=== PATIENT | female | born 1955 | race Caucasian/White ===

== ENCOUNTER 2016-09-18 08:00 | Outpatient (CLI) | payer MEDICAID | END 2016-09-18 08:01 | disposition home or self-care (01) | DX: R63.4 Abnormal weight loss (principal); E78.5 Hyperlipidemia, unspecified; R30.0 Dysuria; R07.9 Chest pain, unspecified; R73.9 Hyperglycemia, unspecified ==

== ENCOUNTER 2016-10-17 16:15 | Outpatient (CLI) | payer MEDICAID | END 2016-10-17 16:30 | disposition home or self-care (01) | LOC: RT.N 16:15 | PROVIDERS: ATTEND Family Medicine | DX: R06.00 Dyspnea, unspecified (principal) | CPT/HCPCS: 93005 ==

== ENCOUNTER 2016-12-02 15:14 | Emergency (ER) | payer MEDICAID ==
[2016-12-02 15:36] VITALS: BP 121/78
[2016-12-02] MEDS ORDERED: DEXAMETHASONE 10 MG/ML VIAL ONE (15:58)
[2016-12-02] MEDS ORDERED: CHERRY SYRUP 10 ML UDC PO ONE (15:58)
[2016-12-02] MEDS: DEXAMETHASONE 10 MG/ML VIAL PO STA (16:01)
--- NOTE | 2016-12-02 16:02 | ED Physician Documentation ---
PD HPI DYSPNEA - Stated complaint Stated Complaint: MED REFILL - Chief complaint Chief Complaint: Resp - History obtained from History obtained from: Patient - History of Present Illness Timing - onset: How many days ago (few) Timing - onset during: Light activity Timing - duration: Days Timing - details: Gradual onset, Still present, Waxing and waning Inciting event(s): URI (some cough and congestion, though does have seasonal allergies too.) Worsened by: Exertion, Coughing Associated symptoms: Cough, Wheezing. No: Fever, Hemoptysis, Chest pain / discomfort, Bilateral edema Similar symptoms before: Diagnosis (asthma and allergies, sometimes URI/ bronchitis) Recently seen: Not recently seen Review of Systems Constitutional: denies: Fever, Chills, Myalgias Nose: reports: Rhinorrhea / runny nose, Congestion Throat: denies: Sore throat Cardiac: denies: Chest pain / pressure Respiratory: reports: Dyspnea, Cough, Wheezing. denies: Hemoptysis GI: denies: Nausea, Vomiting, Diarrhea Skin: denies: Rash, Lesions Musculoskeletal: denies: Neck pain, Back pain Immunocompromised: denies: Immunocompromised PD PAST MEDICAL HISTORY - Past Medical History Cardiovascular: Hypertension, High cholesterol, Arrhythmia, Other Respiratory: Asthma, COPD, Pneumonia Neuro: None Endocrine/Autoimmune: None GI: Cirrhosis, Diverticulitis, Cholelithiasis, Other : Renal insuffiency, Other HEENT: None Psych: Anxiety, Post traumatic stress disorder Musculoskeletal: None Derm: None - Past Surgical History Past Surgical History: Yes General: Cholecystectomy, Colonoscopy, EGD 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, 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 Cardiovascular: Other - Present Medications Home Medications: Ambulatory Orders Medication Instructions Recorded Confirmed Estradiol [Estrace] 2 mg PO DAILY 08/20/13 12/02/16 Albuterol Sulfate [Proair Hfa] 90 mcg INH Q4HR PRN 01/03/14 12/02/16 Quetiapine Fumarate [Seroquel] 50 mg PO DAILY 01/03/14 12/02/16 Albuterol Sulfate [Proair Hfa 2 puffs IH QID #1 hfa.aer.ad 12/02/16 Inhaler] Allopurinol 100 mg PO DAILY 12/02/16 12/02/16 Beclomethasone 80 Mcg [Qvar 80] 1 puffs PO BID 12/02/16 12/02/16 Dexamethasone [Decadron] 4 mg PO DAILY #7 tablet 12/02/16 Gabapentin [Neurontin] 300 mg PO BID 12/02/16 12/02/16 [place]-3/Dha/Epa/Fish Oil [Fish Oil 2 cap PO BID 12/02/16 12/02/16 1,360 mg Softgel] - Allergies Allergies/Adverse Reactions: Allergies Allergy/AdvReac Type Severity Reaction Status Date / Time Sulfa (Sulfonamide Allergy Intermediate Hives Verified 12/02/16 15:38 Antibiotics) codeine AdvReac Itching Verified 12/02/16 15:38 morphine AdvReac Anxiety Verified 12/02/16 15:38 - Living Situation Living Arrangement: reports: At home - Social History Does the pt smoke?: Yes Smoking Status: Current every day smoker Does the pt drink ETOH?: No Does the pt have substance abuse?: No - Immunizations Immunizations are current?: Yes - POLST Patient has POLST: No PD ED PE NORMAL - Vitals Vital signs reviewed: Yes - General General: Alert and oriented X 3, Well developed/nourished - HEENT HEENT: Pharynx benign - Neck Neck: Supple, no meningeal sign, No adenopathy - Cardiac Cardiac: RRR, No murmur - Respiratory Respiratory: No respiratory distress, Other (some mild wheezing. CLear smell of ciagarette smoke on clothing. ) - Derm Derm: Normal color, Warm and dry - Extremities Extremities: No tenderness to palpate, No edema Results - Vitals Vitals: Vital Signs - 24 hr 12/02/16 12/02/16 15:17 15:32 Temperature 36.2 C L 36.1 C L Heart Rate 85 79 Respiratory 18 20 Rate Blood Pressure 129/77 121/78 O2 Saturation 97 96 Oxygen O2 Source [With Activity] Nasal cannula O2 Source [Without Activity] Nasal cannula O2 Source Room air PD MEDICAL DECISION MAKING - ED course Complexity details: considered differential (seems likely environmental or perhaps viral. No fevers, purulent sputum. Will give Rx for Albuterol MDI and short course steroids. ), d/w patient Departure - Departure Disposition: 01 Home, Self Care Clinical Impression: Asthma Qualifiers: Asthma severity: mild persistent Asthma complication type: with acute exacerbation Qualified Code(s): J45.31 - Mild persistent asthma with (acute) exacerbation Dyspnea Qualifiers: Dyspnea type: shortness of breath Qualified Code(s): R06.02 - Shortness of breath Condition: Stable Record reviewed to determine appropriate education?: Yes Instructions: Asthma Dc, ED URI Viral W Wheezing Follow-Up: Leonid Irizarry MD [Primary Care Provider] - Prescriptions: Dexamethasone [Decadron] 4 mg PO DAILY #7 tablet Albuterol Sulfate [Proair Hfa Inhaler] 2 puffs IH QID #1 hfa.aer.ad Comments: Continue usual medications. Albuterol inhaler 2 puffs 4 times daily and extra times as needed for cough/wheezing. Decadron steroid daily for a week. Recheck if not improved over the next few days. Discharge Date/Time: 12/02/16 16:10
== END 2016-12-02 16:10 | disposition home or self-care (01) ==
LOC: ED 15:14
DX: J45.31 Mild persistent asthma with (acute) exacerbation (principal); J44.9 Chronic obstructive pulmonary disease, unspecified; I10 Essential (primary) hypertension; E78.00 Pure hypercholesterolemia, unspecified; I49.9 Cardiac arrhythmia, unspecified; K74.60 Unspecified cirrhosis of liver; N28.9 Disorder of kidney and ureter, unspecified; F17.200 Nicotine dependence, unspecified, uncomplicated
CPT/HCPCS: 99282; 99283

== ENCOUNTER 2017-02-27 15:17 | Outpatient (CLI) | payer MEDICAID | END 2017-02-27 15:18 | disposition critical access hospital (66) | LOC: EMS 15:17 | PROVIDERS: ATTEND Surgery | DX: R06.00 Dyspnea, unspecified (principal); R05 Cough | CPT/HCPCS: A0425; A0427 ==

== ENCOUNTER 2017-02-27 15:40 | Emergency (ER) | payer MEDICAID ==
[2017-02-27] MEDS ORDERED: ALBUTEROL NEB 2.5 MG/3 ML INH STA (15:45)
[2017-02-27] MEDS ORDERED: SODIUM CHLORIDE 0.9% 1,000 ML IV ONE (15:45)
--- NOTE | 2017-02-27 15:48 | ED Physician Documentation ---
PD HPI DYSPNEA - Stated complaint Stated Complaint: DIFFICULTY BREATHING - History obtained from History obtained from: Patient, EMS - History of Present Illness Timing - onset: Other (61-year-old woman with history of COPD and still smokes with 2 weeks of increasing shortness of breath and a dry cough. No fevers or chills, no chest pain, or pedal edema. On route she received Solu-Medrol, 125 mg IV and a DuoNeb with some improvement.) Review of Systems Constitutional: denies: Fever, Chills Nose: denies: Rhinorrhea / runny nose, Congestion Cardiac: denies: Chest pain / pressure, Palpitations, Pedal edema, Calf pain Respiratory: reports: Dyspnea, Cough, Wheezing. 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 Cardiovascular: Other - Present Medications Home Medications: Ambulatory Orders Medication Instructions Recorded Confirmed Estradiol [Estrace] 2 mg PO DAILY 08/20/13 02/27/17 Albuterol Sulfate [Proair Hfa] 90 mcg INH Q4HR PRN 01/03/14 12/02/16 Quetiapine Fumarate [Seroquel] 50 mg PO DAILY 01/03/14 02/27/17 Albuterol Sulfate [Proair Hfa 2 puffs IH QID #1 hfa.aer.ad 12/02/16 02/27/17 Inhaler] Allopurinol 100 mg PO DAILY 12/02/16 02/27/17 Beclomethasone 80 Mcg [Qvar 80] 1 puffs PO BID 12/02/16 02/27/17 Gabapentin [Neurontin] 300 mg PO BID 12/02/16 02/27/17 [place]-3/Dha/Epa/Fish Oil [Fish Oil 2 cap PO BID 12/02/16 12/02/16 1,360 mg Softgel] Albuterol Sulfate [Proventil Hfa 1 - 2 puffs IH Q4H PRN #1 02/27/17 Inhaler] hfa.aer.ad Doxycycline Hyclate 100 mg PO BID #14 tablet 02/27/17 predniSONE [Deltasone] 20 mg PO [id number] #21 tab 02/27/17 - Allergies Allergies/Adverse Reactions: Allergies Allergy/AdvReac Type Severity Reaction Status Date / Time Sulfa (Sulfonamide Allergy Intermediate Hives Verified 02/27/17 15:48 Antibiotics) codeine AdvReac Itching Verified 02/27/17 15:48 morphine AdvReac Anxiety Verified 02/27/17 15:48 - Social History Does the pt smoke?: Yes Smoking Status: Current every day smoker Does the pt drink ETOH?: No Does the pt have substance abuse?: No - Family History Family history: reports: Non contributory - Immunizations Immunizations are current?: Yes - POLST Patient has POLST: No PD ED PE NORMAL - Vitals Vital signs reviewed: Yes - General General: Alert and oriented X 3, Other (Appears winded but speaking in full sentences) - HEENT HEENT: PERRL, Pharynx benign - Neck Neck: Supple, no meningeal sign, No bony TTP - Cardiac Cardiac: RRR, No murmur - Respiratory Respiratory: Other (Inspiratory and expiratory wheezing throughout with slight rhonchi but no focal findings.) - Derm Derm: Normal color, Warm and dry - Extremities Extremities: No edema, No calf tenderness / cord - Neuro Neuro: Alert and oriented X 3, Normal speech - Psych Psych: Normal mood, Normal affect Results - Vitals Vitals: Vital Signs - 24 hr 02/27/17 02/27/17 02/27/17 15:45 16:00 16:01 Temperature 36.1 C L Heart Rate 78 78 93 Respiratory 20 14 20 Rate Blood Pressure 112/80 119/62 O2 Saturation 93 95 02/27/17 16:45 Temperature Heart Rate 90 Respiratory 17 Rate Blood Pressure 95/55 L O2 Saturation 95 Oxygen O2 Source [] Nasal cannula O2 Source [] Nasal cannula O2 Source Room air - Labs Labs: Laboratory Tests 02/27/17 02/27/17 16:40 16:40 WBC 13.1 H RBC 5.20 Hgb 16.4 H Hct 49.0 H MCV 94.1 MCH 31.6 H MCHC 33.6 RDW 14.8 Plt Count 214 MPV 8.3 Neut # 9.7 H Lymph # 2.6 [place] # 0.4 Eos # 0.3 Baso # 0.1 Absolute Nucleated RBC 0.00 Nucleated RBC % 0.0 Sodium 137 Potassium 4.1 Chloride 100 L Carbon Dioxide 23 Anion Gap 14.0 H BUN 15 Creatinine 1.2 H Estimated GFR (MDRD) 46 L Glucose 152 H Calcium 9.7 Total Bilirubin 0.7 AST 21 ALT 18 Alkaline Phosphatase 76 Total Protein 8.3 H Albumin 5.0 Globulin 3.3 Albumin/Globulin Ratio 1.5 Lipase 30 - Rads (name of study) 1v chest Radiology: EMP read contemporaneously (NAD) PD MEDICAL DECISION MAKING - ED course ED course: 61-year-old woman with COPD presents with apparent exacerbation of same, chest x -ray is clear. Feeling better after a second neb here and also received steroids in route. Vital signs stayed unremarkable without significant tachycardia or hypoxemia. She was also administered doxycycline here. She was counseled to quit smoking and understands the need to and plans to. Departure - Departure Disposition: 01 Home, Self Care Clinical Impression: Moderate COPD (chronic obstructive pulmonary disease) Condition: Good Record reviewed to determine appropriate education?: Yes Instructions: ED COPD Flare Prescriptions: Albuterol Sulfate [Proventil Hfa Inhaler] 1 - 2 puffs IH Q4H PRN #1 hfa.aer.ad PRN Reason: Cough Doxycycline Hyclate 100 mg PO BID #14 tablet predniSONE [Deltasone] 20 mg PO [id number] #21 tab Comments: Follow-up with your doctor tomorrow as scheduled. Return if worse.
[2017-02-27] MEDS ORDERED: ALBUTEROL NEB 2.5 MG/3 ML INH ONE (16:04)
--- NOTE | 2017-02-27 16:14 | XRAY Preliminary Report ---
Exam: XR CHEST 1 VIEW IMPRESSION: Normal single view chest. [facility] SITE ID: [id number]
--- NOTE | 2017-02-27 16:17 | XRAY Report ---
EXAM: CHEST RADIOGRAPHY EXAM DATE: 02/27/2017 04:00 PM. CLINICAL HISTORY: Dyspnea. History of COPD. COMPARISON: 01/10/2014. TECHNIQUE: 1 view. FINDINGS: Lungs/Pleura: No focal opacities evident. No pleural effusion. No pneumothorax. Normal volumes. Mediastinum: Within exam limitations, the cardiomediastinal contour is normal. Other: No bony abnormality is identified. IMPRESSION: Normal single view chest. [facility] Referring Provider Line: [phone] SITE ID: [id number]
[2017-02-27] MEDS ORDERED: SODIUM CHLORIDE FLUSH 0.9% 10 ML SYRINGE IVP ONE (16:20)
[2017-02-27] MEDS ORDERED: DOXYCYCLINE 100 MG TABLET PO STA (16:35)
[2017-02-27 16:47] LABS: BASOPHILS # (AUTO) 0.1 10^3/uL (0.0-0.1); BASOPHILS % (AUTO) 0.7 %; EOSINOPHILS # (AUTO) 0.3 10^3/uL (0.0-0.7); EOSINOPHILS % (AUTO) 2.3 %; HGB - HEMOGLOBIN 16.4 g/dL (12.0-16.0); LYMPHOCYTES # (AUTO) 2.6 10^3/uL (1.5-3.5); MEAN CORPUSCULAR HEMOGLOBIN 31.6 pg (27.0-31.0); MEAN CORPUSCULAR HGB CONC 33.6 g/dL (32.0-36.0); MEAN CORPUSCULAR VOLUME 94.1 fL (81.0-99.0); MEAN PLATELET VOLUME 8.3 fL (7.9-10.8); MONOCYTES # (AUTO) 0.4 10^3/uL (0.0-1.0); NEUTROPHILS # (AUTO) 9.7 10^3/uL (1.5-6.6); RED CELL DISTRIBUTION WIDTH 14.8 % (12.0-15.0); UNCORRECTED WHITE BLOOD COUNT 13.1 x10^3/uL; WHITE BLOOD COUNT 13.1 x10^3/uL (4.8-10.8)
[2017-02-27] MEDS ORDERED: DOXYCYCLINE 100 MG TABLET PO ONE (16:47)
[2017-02-27 17:00] LABS: ALBUMIN/GLOBULIN RATIO 1.5 (1.0-2.2); BILIRUBIN,TOTAL 0.7 mg/dL (0.2-1.0); CALCIUM 9.7 mg/dL (8.5-10.3); CREATININE 1.2 mg/dL (0.4-1.0); POTASSIUM 4.1 mmol/L (3.5-5.0); TOTAL PROTEIN 8.3 g/dL (6.7-8.2)
[2017-02-27 17:24] VITALS: BP 133/77
== END 2017-02-27 17:21 | disposition home or self-care (01) ==
LOC: EDUNIT# → ED 15:40
DX: J44.9 Chronic obstructive pulmonary disease, unspecified (principal); I10 Essential (primary) hypertension; E78.00 Pure hypercholesterolemia, unspecified; F17.200 Nicotine dependence, unspecified, uncomplicated
CPT/HCPCS: 36415; 71010; 80053; 83690; 85025; 94640; 96360; 99284; A9270; J7613

== ENCOUNTER 2017-05-30 22:39 | Emergency (ER) | payer MEDICAID ==
--- NOTE | 2017-05-30 23:16 | XRAY Report ---
EXAM: RIGHT FOOT RADIOGRAPHY EXAM DATE: 05/30/2017 11:02 PM. CLINICAL HISTORY: Toe and heel pain after minor trauma. COMPARISON: None. TECHNIQUE: 3 views. FINDINGS: Bones: No acute fracture seen. Joints: No dislocation. Joint spaces are relatively well-preserved. Soft Tissues: Mild soft tissue swelling. IMPRESSION: 1. No acute fracture or dislocation seen. [facility] Referring Provider Line: [phone] SITE ID: [id number]
[2017-05-30] MEDS ORDERED: IBUPROFEN 600 MG TABLET PO STA (23:19)
--- NOTE | 2017-05-30 23:38 | ED Physician Documentation ---
PD HPI LOWER EXT INJURY - Stated complaint Stated Complaint: TOE/HEEL PX - Chief complaint Chief Complaint: Trauma Ext - History obtained from History obtained from: Patient - History of Present Illness PD HPI LOW EXT INJURY LOCATION: Right, Ankle, Foot, Toe Type of injury: Blunt / blow Where injury occurred: Home Timing - onset: How many days ago (4) Timing - details: Abrupt onset, Still present Improved by: Rest, Immobilization Worsened by: Palpating Associated symptoms: Numbness, Tingling. No: Weakness, Swelling, Discolored Similar symptoms before: Has not had sx before Recently seen: Not recently seen - Additional information Additional information: Patient is a 61 year old female who is presenting to the emergency department for right sided rib pain. patient states that a few days ago she stubbed her toe. She has had pain in her 4th and 5th digits and then she developed medial foot pain. Patient states that it gets worse when she is up on her feet and gets better when her feet are up or she is wearing supportive shoes. Review of Systems Constitutional: denies: Fever, Chills, Myalgias Eyes: reports: Reviewed and negative Ears: reports: Reviewed and negative Nose: reports: Reviewed and negative Throat: reports: Reviewed and negative Cardiac: denies: Pedal edema, Calf pain Respiratory: reports: Wheezing GI: denies: Nausea, Vomiting : reports: Reviewed and negative Skin: denies: Rash, Lesions, Abrasion (s) Musculoskeletal: reports: Extremity pain, Extremity swelling Neurologic: reports: Numbness. 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 Cardiovascular: Other - Present Medications Home Medications: Ambulatory Orders Medication Instructions Recorded Confirmed Estradiol [Estrace] 2 mg PO DAILY 08/20/13 05/30/17 Albuterol Sulfate [Proair Hfa] 90 mcg INH Q4HR PRN 01/03/14 05/30/17 Albuterol Sulfate [Proair Hfa 2 puffs IH QID #1 hfa.aer.ad 12/02/16 05/30/17 Inhaler] Allopurinol 100 mg PO DAILY 12/02/16 05/30/17 Beclomethasone 80 Mcg [Qvar 80] 1 puffs PO BID 12/02/16 05/30/17 Gabapentin [Neurontin] 300 mg PO BID 12/02/16 05/30/17 [place]-3/Dha/Epa/Fish Oil [Fish Oil 2 cap PO BID 12/02/16 05/30/17 1,360 mg Softgel] Albuterol Sulfate [Proventil Hfa 1 - 2 puffs IH Q4H PRN #1 02/27/17 05/30/17 Inhaler] hfa.aer.ad Doxycycline Hyclate 100 mg PO BID #14 tablet 02/27/17 05/30/17 predniSONE [Deltasone] 20 mg PO [id number] #21 tab 02/27/17 05/30/17 - Allergies Allergies/Adverse Reactions: Allergies Allergy/AdvReac Type Severity Reaction Status Date / Time Sulfa (Sulfonamide Allergy Intermediate Hives Verified 05/30/17 22:46 Antibiotics) codeine AdvReac Itching Verified 05/30/17 22:46 morphine AdvReac Anxiety Verified 05/30/17 22:46 - Social History Does the pt smoke?: Yes Smoking Status: Current every day smoker Does the pt drink ETOH?: No Does the pt have substance abuse?: No - Immunizations Immunizations are current?: Yes - POLST Patient has POLST: No PD ED PE NORMAL - Vitals Vital signs reviewed: Yes - General General: Alert and oriented X 3, No acute distress - HEENT HEENT: Atraumatic, PERRL - Neck Neck: No JVD - Cardiac Cardiac: RRR - Respiratory Respiratory: No respiratory distress - Abdomen Abdomen: Non distended - Derm Derm: Normal color, Warm and dry, No rash - Neuro Neuro: Alert and oriented X 3, No motor deficit, Normal speech PD ED PE EXPANDED - Extremities Extremities: Right ankle (minimal tenderness to palpation, no warmth or erythema ), Right toe(s) (tenderness and mild swelling of 4th and 5th digits of right foot) Results - Vitals Vitals: Vital Signs - 24 hr 05/30/17 22:44 Temperature 36.3 C L Heart Rate 92 Respiratory 18 Rate Blood Pressure 114/100 H O2 Saturation 100 Oxygen O2 Source [With Activity] Nasal cannula O2 Source [Without Activity] Nasal cannula O2 Source Room air - Rads (name of study) right foot x-ray Radiology: Final report received (no acute fracture or dislocation, mild swelling) PD MEDICAL DECISION MAKING - ED course Complexity details: reviewed old records, reviewed results, re-evaluated patient , considered differential, d/w patient, d/w family ED course: Patient was seen and examined at bedside. Patient was sent for imaging. when patient returned the results were reviewed. there was no acute fracture or dislocation. patient had no signs of gout or infection. Patient required no further work up and was stable for discharge with outpatient follow up. Departure - Departure Disposition: 01 Home, Self Care Clinical Impression: Foot pain, right Condition: Good Instructions: ED Sprain Foot, ED RICE Follow-Up: Leonid Irizarry MD [Primary Care Provider] - Comments: Your diagnostics today were within normal limits. there is no acute fracture or dislocation. there is no sign of gout or infection. You should take motrin or tylenol as needed for pain as well as ice. You can wear the jesús bandage for extra support. You should try to cut back/quit smoking and you may be developing peripheral vascular disease. You should follow up with your doctor for further evaluation and care. You may return to the emergency department at any time for new, worsening or uncontrollable symptoms.
[2017-05-31 00:03] VITALS: BP 118/90
== END 2017-05-30 23:50 | disposition home or self-care (01) ==
LOC: ED 22:39
DX: M79.671 Pain in right foot (principal); W22.8XXA Striking against or struck by other objects, initial encounter; I10 Essential (primary) hypertension; E78.00 Pure hypercholesterolemia, unspecified; I49.9 Cardiac arrhythmia, unspecified; J44.9 Chronic obstructive pulmonary disease, unspecified; K74.60 Unspecified cirrhosis of liver; F17.200 Nicotine dependence, unspecified, uncomplicated
CPT/HCPCS: 73630; 99283; A9270

== ENCOUNTER 2017-07-30 13:39 | Outpatient (CLI) | payer MEDICAID ==
[2017-07-30 19:43] LABS: ALBUMIN 4.9 g/dL (3.2-5.5); ALBUMIN/GLOBULIN RATIO 1.4 (1.0-2.2); ALKALINE PHOSPHATASE 97 IU/L (42-121); ALT ALANINE AMINOTRANSFERASE 19 IU/L (10-60); AST ASPARTATE AMINOTRANSFERASE 24 IU/L (10-42); BILIRUBIN,TOTAL 0.6 mg/dL (0.2-1.0); BUN - BLOOD UREA NITROGEN 17 mg/dL (6-20); CALCIUM 9.6 mg/dL (8.5-10.3); CARBON DIOXIDE - CO2 20 mmol/L (21-32); CHLORIDE 102 mmol/L (101-111); CHOL/HDL RATIO 7.6 (<4.4); CHOLESTEROL 343 mg/dL; CREATININE 1.1 mg/dL (0.4-1.0); GFR - MDRD 51 (>89); GLUCOSE 144 mg/dL (70-100); HDL CHOLESTEROL 45 mg/dL; LDL CHOLESTEROL,CALCULATED 236 mg/dL; LDL/HDL RATIO 5.2 (<4.4); SODIUM 134 mmol/L (135-145); TOTAL PROTEIN 8.5 g/dL (6.7-8.2); VLDL CHOLESTEROL 62 mg/dL
== END 2017-07-30 13:40 | disposition home or self-care (01) ==
LOC: LAB.N 13:39
PROVIDERS: ATTEND Family Medicine
DX: E78.1 Pure hyperglyceridemia (principal)
CPT/HCPCS: 36415; 80053; 80061; 83721

== ENCOUNTER 2017-08-29 11:14 | Outpatient (CLI) | payer MEDICAID ==
--- NOTE | 2017-08-29 14:23 | XRAY Report ---
THREE VIEW RIGHT FOOT: 08/29/2017 CLINICAL INDICATION: Toe pain. COMPARISON: 05/30/2017. FINDINGS: AP, lateral, oblique views of the right foot demonstrate no evidence of acute fracture or dislocation. Specifically, no right fifth toe fracture is appreciated. No radiopaque foreign body is seen in the soft tissues. IMPRESSION: NO EVIDENCE OF FRACTURE. NO SIGNIFICANT INTERVAL CHANGE. TD: 08/29/2017 14:22
== END 2017-08-29 11:15 | disposition home or self-care (01) ==
LOC: DI.N 11:14
PROVIDERS: ATTEND Family Medicine
DX: M79.674 Pain in right toe(s) (principal)

== ENCOUNTER 2017-10-21 08:00 | Outpatient (CLI) | payer MEDICAID ==
[2017-10-21 19:42] LABS: BASOPHILS # (AUTO) 0.1 10^3/uL (0.0-0.1); BASOPHILS % (AUTO) 0.8 %; EOSINOPHILS # (AUTO) 0.2 10^3/uL (0.0-0.7); EOSINOPHILS % (AUTO) 2.7 %; HGB - HEMOGLOBIN 14.7 g/dL (12.0-16.0); LYMPHOCYTES # (AUTO) 2.3 10^3/uL (1.5-3.5); MEAN CORPUSCULAR HEMOGLOBIN 32.8 pg (27.0-31.0); MEAN CORPUSCULAR HGB CONC 33.6 g/dL (32.0-36.0); MEAN CORPUSCULAR VOLUME 97.7 fL (81.0-99.0); MEAN PLATELET VOLUME 8.8 fL (7.9-10.8); MEAN RETIC VALUE 114.6; MONOCYTES # (AUTO) 0.6 10^3/uL (0.0-1.0); NEUTROPHILS # (AUTO) 4.8 10^3/uL (1.5-6.6); NEUTROPHILS % (AUTO) 60.5 %; PLT - PLATELET COUNT 182 10^3/uL (130-450); RED BLOOD COUNT 4.48 10^6/uL (4.20-5.40); RED CELL DISTRIBUTION WIDTH 14.1 % (12.0-15.0); WHITE BLOOD COUNT 7.9 x10^3/uL (4.8-10.8)
[2017-10-21 19:59] LABS: HB2 TOTAL 16.2 g/dL; HEMOGLOBIN A1C 0.58 g/dL; HEMOGLOBIN A1C % 5.4 % (4.6-6.2)
[2017-10-21 20:08] LABS: CALCIUM 9.4 mg/dL (8.5-10.3); CREATININE 0.9 mg/dL (0.4-1.0)
[2017-10-21 20:17] LABS: FERRITIN 48.2 ng/mL (11.0-306.8)
[2017-10-21 20:20] LABS: FOLATE 23.91 ng/mL (5.90 - >24.8)
== END 2017-10-21 08:01 | disposition home or self-care (01) ==
LOC: LAB.N 08:00
PROVIDERS: ATTEND Family Medicine
DX: R73.01 Impaired fasting glucose (principal); D64.9 Anemia, unspecified
CPT/HCPCS: 36415; 80048; 82607; 82728; 82746; 83036; 83540; 84466; 85025; 85044

== ENCOUNTER 2017-12-27 16:54 | Outpatient (CLI) | payer MEDICAID | END 2017-12-27 16:55 | disposition critical access hospital (66) | LOC: EMS 16:54 | PROVIDERS: ATTEND Surgery | DX: R06.02 Shortness of breath (principal) | CPT/HCPCS: A0425; A0427; A0999 ==

== ENCOUNTER 2017-12-27 17:22 | Emergency (ER) | payer MEDICAID ==
--- NOTE | 2017-12-27 18:26 | XRAY Report ---
Procedure Date: 12/27/2017 Accession Number: [id number] / [id number] Procedure: XR - Chest 2 View X-Ray CPT Code: 17109 FULL RESULT: EXAM: CHEST RADIOGRAPHY EXAM DATE: 12/27/2017 06:00 PM. CLINICAL HISTORY: SOA/wheezing. COMPARISON: CHEST 2 VIEW PA/LAT 01/03/2014. TECHNIQUE: 2 views. FINDINGS: Lungs/Pleura: No focal opacities evident. No pleural effusion. No pneumothorax. Normal volumes. Mediastinum: Heart and mediastinal contours are unremarkable. Other: None. IMPRESSION: Negative chest. [facility]
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
[2017-12-27] MEDS ORDERED: BENZONATATE 100 MG CAPSULE PO STA (18:58)
[2017-12-27] MEDS ORDERED: methylPREDNISolone SUCCINATE 125 MG/2 ML VIAL IVP STA (18:58)
[2017-12-27 19:18] VITALS: BP 129/74
== END 2017-12-27 19:18 | disposition home or self-care (01) ==
LOC: EDBD → EDUNIT# → ED 17:22
DX: J45.21 Mild intermittent asthma with (acute) exacerbation (principal); R05 Cough; F17.200 Nicotine dependence, unspecified, uncomplicated; I10 Essential (primary) hypertension
CPT/HCPCS: 71046; 93005; 96374; 99283; A9270

== ENCOUNTER 2018-01-03 16:22 | Outpatient (CLI) | payer MEDICAID | END 2018-01-03 16:23 | disposition home or self-care (01) | LOC: RT.N 16:22 | PROVIDERS: ATTEND Family Medicine | DX: R06.00 Dyspnea, unspecified (principal); J44.1 Chronic obstructive pulmonary disease with (acute) exacerbation | CPT/HCPCS: 93005 ==

== ENCOUNTER 2018-09-19 08:00 | Outpatient (CLI) | payer MEDICAID ==
[2018-09-19 18:49] LABS: BASOPHILS # (AUTO) 0.1 10^3/uL (0.0-0.1); BASOPHILS % (AUTO) 0.6 %; EOSINOPHILS # (AUTO) 0.2 10^3/uL (0.0-0.7); EOSINOPHILS % (AUTO) 2.4 %; HGB - HEMOGLOBIN 14.5 g/dL (12.0-16.0); LYMPHOCYTES # (AUTO) 2.9 10^3/uL (1.5-3.5); LYMPHOCYTES % (AUTO) 33.2 %; MEAN CORPUSCULAR HEMOGLOBIN 32.7 pg (27.0-31.0); MEAN CORPUSCULAR HGB CONC 34.1 g/dL (32.0-36.0); MEAN CORPUSCULAR VOLUME 95.8 fL (81.0-99.0); MEAN PLATELET VOLUME 9.2 fL (7.9-10.8); MONOCYTES # (AUTO) 0.6 10^3/uL (0.0-1.0); MONOCYTES % (AUTO) 6.3 %; NEUTROPHILS # (AUTO) 5.1 10^3/uL (1.5-6.6); NEUTROPHILS % (AUTO) 57.5 %; PLT - PLATELET COUNT 213 10^3/uL (130-450); RED BLOOD COUNT 4.42 10^6/uL (4.20-5.40); RED CELL DISTRIBUTION WIDTH 14.2 % (12.0-15.0); WHITE BLOOD COUNT 8.9 x10^3/uL (4.8-10.8)
[2018-09-19 18:53] LABS: HB2 TOTAL 15.3 g/dL; HEMOGLOBIN A1C 0.55 g/dL; HEMOGLOBIN A1C % 5.4 % (4.6-6.2)
[2018-09-19 18:54] LABS: CALCIUM 9.3 mg/dL (8.5-10.3); CREATININE 0.8 mg/dL (0.4-1.0)
== END 2018-09-19 23:59 | disposition home or self-care (01) ==
LOC: LAB.N 08:00
PROVIDERS: ATTEND Physician Assistant Medical
DX: K52.9 Noninfective gastroenteritis and colitis, unspecified (principal); R73.01 Impaired fasting glucose; D64.9 Anemia, unspecified; F17.200 Nicotine dependence, unspecified, uncomplicated; J44.9 Chronic obstructive pulmonary disease, unspecified; R10.13 Epigastric pain
CPT/HCPCS: 36415; 80048; 82150; 82274; 83036; 83690; 85025; 87045; 87046; 87338

== ENCOUNTER 2018-09-19 08:00 | Outpatient (CLI) | payer MEDICAID ==
[2018-09-19 19:46] LABS: H. PYLORIS ANTIGEN STL NEGATIVE (Negative)
== END 2018-09-19 23:59 | disposition home or self-care (01) ==
LOC: LAB.R 08:00
PROVIDERS: ATTEND Physician Assistant Medical
DX: K52.9 Noninfective gastroenteritis and colitis, unspecified (principal); R73.01 Impaired fasting glucose; D64.9 Anemia, unspecified; F17.200 Nicotine dependence, unspecified, uncomplicated; J44.9 Chronic obstructive pulmonary disease, unspecified; R10.13 Epigastric pain
CPT/HCPCS: 87045; 87046; 87338

== ENCOUNTER 2018-12-26 13:52 | Outpatient (CLI) | payer MEDICAID ==
[2018-12-26 14:20] LABS: CALCIUM 9.3 mg/dL (8.5-10.3); CREATININE 0.8 mg/dL (0.4-1.0)
[2018-12-26] MEDS ORDERED: IOVERSOL 320 100 ML VIAL IVP ONE (14:22)
[2018-12-26] MEDS ORDERED: IOVERSOL 320 50 ML VIAL ONE (14:22)
--- NOTE | 2018-12-29 00:43 | CT Report ---
Reason: ELEVATED PANCREATIC ENZYME, EPIGASTRIC PAIN, DIARR Procedure Date: 12/26/2018 Accession Number: [id number] / [id number] Procedure: CT - Abdomen/Pelvis W CPT Code: FULL RESULT: EXAM: CT ABDOMEN AND PELVIS EXAM DATE: 12/26/2018 03:20 PM. CLINICAL HISTORY: ELEVATED PANCREATIC ENZYME, EPIGASTRIC PAIN, DIARR. COMPARISONS: ABDOMEN/PELVIS W/ 05/12/2014 4:02 PM. TECHNIQUE: Routine helical CT imaging was performed through the abdomen and pelvis. IV contrast: OPTI 320 90ML. Enteric contrast: No. Reconstructions: Coronal and sagittal. In accordance with CT protocol optimization, one or more of the following dose reduction techniques were utilized for this exam: automated exposure control, adjustment of mA and/or KV based on patient size, or use of iterative reconstructive technique. FINDINGS: ABDOMEN: Lung Bases: Incompletely included lower lungs are grossly clear. Heart size is within normal limits. No basilar effusions. Liver: Unremarkable aside from focal fat adjacent to the fissure for the falciform ligament. Spleen: Unremarkable. Pancreas: Unremarkable. Gallbladder/Bile Ducts: Status post cholecystectomy. Biliary tree is normal caliber. Adrenal Glands: Unremarkable. Kidneys: No mass, calculi, or hydronephrosis. Peritoneum/Mesentery/Bowel: No free fluid, free air, or collection. No intestinal obstruction or inflammation. Colonic diverticulosis. The appendix is within normal limits. Lymph nodes: No mesenteric, periportal, or retroperitoneal lymphadenopathy. Vasculature: Abdominal aorta is nonaneurysmal. Portal vein is patent. Hepatic veins are patent. PELVIS: The bladder is unremarkable for the degree of distention. Uterus is absent. No pelvic lymphadenopathy. Bones: No suspicious osseous lesions. Redemonstration of old bony defect in the right iliac wing. IMPRESSION: No acute abnormalities. RADIA
== END 2018-12-26 13:53 | disposition home or self-care (01) ==
LOC: LAB 13:52
PROVIDERS: ATTEND Physician Assistant Medical
DX: K52.9 Noninfective gastroenteritis and colitis, unspecified (principal); R74.8 Abnormal levels of other serum enzymes; R10.13 Epigastric pain
CPT/HCPCS: 36415; 74177; 80048; Q9967

== ENCOUNTER 2019-07-03 16:53 | Outpatient (CLI) | payer MEDICAID | END 2019-07-03 23:59 | disposition home or self-care (01) | LOC: LAB.R 16:53 | PROVIDERS: ATTEND Family Medicine | DX: R30.0 Dysuria (principal) | CPT/HCPCS: 87086 ==

== ENCOUNTER 2020-07-21 16:49 | Emergency (ER) | payer MEDICAID ==
--- NOTE | 2020-07-21 17:19 | ED Physician Documentation ---
History of Present Illness - Stated complaint Stated Complaint: CHILLS, UNABLE TO EAT - Chief complaint Chief Complaint: General - History obtained from History obtained from: Patient - Additonal information Additional information: 64-year-old woman with history of gout, left bundle branch block, hypertension who presents with 2 months of progressive issues with occasional confusion and word finding difficulty. Twice while she is driving she kind of forgets where she is going but then figures it out. For the last month or so she has had a pain in the left mastoid area. It is pretty constant. Does not seem to change with motion. Its not terrible but definitely disconcerting for her. Is not associated with other headaches or hearing loss. No URI symptoms. During this timeframe she is lost quite a bit of weight, 20 to 30 pounds. She just does not feel hungry, has no appetite. Review of Systems Ten Systems: 10 systems reviewed and negative Constitutional: reports: Chills, Fatigue, Weight Loss. denies: Fever Nose: denies: Rhinorrhea / runny nose, Congestion Throat: denies: Sore throat Cardiac: denies: Chest pain / pressure, Palpitations Respiratory: denies: Dyspnea, Cough PD PAST MEDICAL HISTORY - Past Medical History Cardiovascular: Hypertension, High cholesterol, Arrhythmia, Other Respiratory: Asthma, COPD, Pneumonia Endocrine/Autoimmune: None GI: Cirrhosis, Diverticulitis, Cholelithiasis, Other : Renal insuffiency, Other HEENT: None Psych: Anxiety, Post traumatic stress disorder Musculoskeletal: None Derm: None - Past Surgical History Past Surgical History: Yes General: Cholecystectomy, Colonoscopy, EGD Ortho: Other /[employer]: Hysterectomy, Oophrectomy Cardiovascular: Other - Present Medications Home Medications: Ambulatory Orders Medication Instructions Recorded Confirmed Estradiol [Estrace] 2 mg PO DAILY 08/20/13 05/30/17 Albuterol Sulfate [Proair Hfa] 90 mcg INH Q4HR PRN 01/03/14 05/30/17 Albuterol Sulfate [Proair Hfa 2 puffs IH QID #1 hfa.aer.ad 12/02/16 05/30/17 Inhaler] Beclomethasone 80 Mcg [Qvar 80] 1 puffs PO BID 12/02/16 05/30/17 Gabapentin [Neurontin] 300 mg PO BID 12/02/16 05/30/17 [place]-3/Dha/Epa/Fish Oil [Fish Oil 2 cap PO BID 12/02/16 05/30/17 1,360 mg Softgel] allopurinoL [Allopurinol] 100 mg PO DAILY 12/02/16 05/30/17 Albuterol Sulfate [Proventil Hfa 1 - 2 puffs IH Q4H PRN #1 02/27/17 05/30/17 Inhaler] hfa.aer.ad Doxycycline Hyclate 100 mg PO BID #14 tablet 02/27/17 05/30/17 predniSONE [Deltasone] 20 mg PO [id number] #21 tab 02/27/17 05/30/17 Albuterol 2.5 mg INH Q4H PRN #30 neb 12/27/17 Albuterol Sulf [Ventolin Hfa 1 - 2 puffs INH Q4HR PRN #1 inhaler 12/27/17 Inhaler] Benzonatate [Tessalon] 100 mg PO TID PRN #25 capsule 12/27/17 predniSONE [Deltasone] 40 mg PO DAILY 5 Days #10 tablet 12/27/17 - Allergies Allergies/Adverse Reactions: Allergies Allergy/AdvReac Type Severity Reaction Status Date / Time Sulfa (Sulfonamide Allergy Intermediate Hives Verified 07/21/20 17:03 Antibiotics) codeine AdvReac Itching Verified 07/21/20 17:03 morphine AdvReac Anxiety Verified 07/21/20 17:03 - Social History Does the pt smoke?: Yes Smoking Status: Current every day smoker Does the pt drink ETOH?: No Does the pt have substance abuse?: No - Immunizations Immunizations are current?: Yes - POLST Patient has POLST: No PD ED PE NORMAL - Vitals Vital signs reviewed: Yes - General General: Alert and oriented X 3, No acute distress - HEENT HEENT: PERRL, EOMI, Other (No mastoid tenderness or odd appearance to the TMs) - Neck Neck: Supple, no meningeal sign, No bony TTP - Cardiac Cardiac: RRR, No murmur - Respiratory Respiratory: No respiratory distress, Clear bilaterally - Abdomen Abdomen: Soft, Non tender - Back Back: No CVA TTP, No spinal TTP - Derm Derm: Normal color, Warm and dry - Extremities Extremities: No tenderness to palpate, Normal ROM s pain, No edema, No calf tenderness / cord - Neuro Neuro: Alert and oriented X 3, No motor deficit, No sensory deficit, Normal speech, Other (Intention tremor on [id number] testing but no ataxia it is symmetric.) - Psych Psych: Normal mood, Normal affect Results - Vitals Vitals: Vital Signs - 24 hr 07/21/20 16:54 Temperature 36.3 C L Heart Rate 98 Respiratory 18 Rate Blood Pressure 112/74 O2 Saturation 99 Oxygen O2 Source [With Activity] Nasal cannula O2 Source [Without Activity] Nasal cannula O2 Source Room air - Labs Labs: Laboratory Tests 07/21/20 07/21/20 07/21/20 17:45 17:55 17:55 WBC 10.3 RBC 4.45 Hgb 14.3 Hct 42.7 MCV 96.0 MCH 32.1 H MCHC 33.5 RDW 14.2 Plt Count 200 MPV 10.0 Neut # (Auto) 6.7 H Lymph # (Auto) 2.7 Barry # (Auto) 0.6 Eos # (Auto) 0.2 Baso # (Auto) 0.1 Absolute Nucleated RBC 0.00 Nucleated RBC % 0.0 Sodium 135 Potassium 3.3 L Chloride 99 L Carbon Dioxide 24 Anion Gap 12.0 BUN 14 Creatinine 1.3 H Estimated GFR (MDRD) 42 L Glucose 103 H Calcium 9.4 Total Bilirubin 0.7 AST 17 ALT 14 Alkaline Phosphatase 77 Total Protein 7.7 Albumin 4.7 Globulin 3.0 Albumin/Globulin Ratio 1.6 TSH Urine Opiates Screen NEGATIVE Ur Oxycodone Screen NEGATIVE Urine Methadone Screen NEGATIVE Ur Propoxyphene Screen NEGATIVE Ur Barbiturates Screen NEGATIVE Ur Tricyclics Screen NEGATIVE Ur Phencyclidine Scrn NEGATIVE Ur Amphetamine Screen NEGATIVE U Methamphetamines Scrn NEGATIVE U Benzodiazepines Scrn POSITIVE H Urine Cocaine Screen NEGATIVE U Cannabinoids Screen POSITIVE H 07/21/20 17:55 WBC RBC Hgb Hct MCV MCH MCHC RDW Plt Count MPV Neut # (Auto) Lymph # (Auto) Barry # (Auto) Eos # (Auto) Baso # (Auto) Absolute Nucleated RBC Nucleated RBC % Sodium Potassium Chloride Carbon Dioxide Anion Gap BUN Creatinine Estimated GFR (MDRD) Glucose Calcium Total Bilirubin AST ALT Alkaline Phosphatase Total Protein Albumin Globulin Albumin/Globulin Ratio TSH 1.45 Urine Opiates Screen Ur Oxycodone Screen Urine Methadone Screen Ur Propoxyphene Screen Ur Barbiturates Screen Ur Tricyclics Screen Ur Phencyclidine Scrn Ur Amphetamine Screen U Methamphetamines Scrn U Benzodiazepines Scrn Urine Cocaine Screen U Cannabinoids Screen - Rads (name of study) head ct Radiology: EMP read contemporaneously 2v chest Radiology: EMP read contemporaneously PD MEDICAL DECISION MAKING - ED course ED course: 64-year-old woman presents with subacute left occipital headache, weight loss and poor appetite. She is a long-term smoker but thankfully no evidence of lung cancer on chest x-ray. Head CT was normal. Labs relatively unremarkable. Mildly high creatinine but she has had worse in the past. She uses concentrated THC products relatively frequently and discussed with her that this may be part of the weight loss and appetite issues and she will trial a cessation of these. Departure - Departure Disposition: 01 Home, Self Care Clinical Impression: Appetite lost, Weight loss Condition: Stable Record reviewed to determine appropriate education?: Yes Instructions: ED Cephalgia Unspecified Comments: As discussed, I would trial cessation of THC containing products, they may not be helping her appetite. Your CT of the head and chest x-ray are normal with the exception of COPD type chronic changes. Labs are otherwise unremarkable. Follow-up with your primary care physician. Discussed neurologic referral as you are planning to do. Return if worsening or if new symptoms develop.
--- NOTE | 2020-07-21 17:38 | XRAY Report ---
PROCEDURE: Chest 2 View X-Ray INDICATIONS: weight loss, smoker TECHNIQUE: 2 view(s) of the chest. COMPARISON: None. FINDINGS: Surgical changes and devices: None. Lungs and pleura: No pleural effusions or pneumothorax. Lungs are clear. Mediastinum: Mediastinal contours are normal. Heart size is normal. Bones and chest wall: No suspicious bony abnormalities. Soft tissues appear unremarkable. IMPRESSION: Large lung volumes, no mass or pneumonia found. Reviewed by: Richard Saini MD on 07/21/2020 4:[address] [facility] Approved by: Richard Saini MD on 07/21/2020 4:[address] [facility] Station ID: [id number]
--- NOTE | 2020-07-21 17:50 | CT Report ---
PROCEDURE: HEAD WO INDICATIONS: posterior head pain TECHNIQUE: Noncontrast 4.5 mm thick angled axial sections acquired from the foramen magnum to the vertex. For r adiation dose reduction, the following was used: automated exposure control, adjustment of mA and/or kV according to patient size. COMPARISON: None. FINDINGS: Image quality: Excellent. CSF spaces: Basal cisterns are patent. No extra-axial fluid collections. Ventricles are normal in size and shape. Brain: No midline shift. No intracranial masses or hemorrhage. Salgado-white matter interface is norm al. Skull and face: Calvarium and visualized facial bones are intact, without suspicious lesions. Sinuses: Visualized sinuses and mastoids are clear. IMPRESSION: Unremarkable head CT. No evidence acute stroke, hemorrhage, or mass. Reviewed by: Zach Salgado MD on 07/21/2020 4:49 PM [facility] Approved by: Zach Salgado MD on 07/21/2020 4:49 PM [facility] Station ID: [id number]
[2020-07-21 17:51] LABS: MUDS CUTOFF CONCENTRATIONS CUTOFF CONC BELOW:
[2020-07-21 17:59] LABS: BASOPHILS # (AUTO) 0.1 10^3/uL (0.0-0.1); BASOPHILS % (AUTO) 0.5 %; EOSINOPHILS # (AUTO) 0.2 10^3/uL (0.0-0.7); EOSINOPHILS % (AUTO) 1.8 %; HCT - HEMATOCRIT 42.7 % (37.0-47.0); HGB - HEMOGLOBIN 14.3 g/dL (12.0-16.0); LYMPHOCYTES # (AUTO) 2.7 10^3/uL (1.5-3.5); LYMPHOCYTES % (AUTO) 26.6 %; MEAN CORPUSCULAR HEMOGLOBIN 32.1 pg (27.0-31.0); MEAN CORPUSCULAR HGB CONC 33.5 g/dL (32.0-36.0); MONOCYTES # (AUTO) 0.6 10^3/uL (0.0-1.0); MONOCYTES % (AUTO) 6.2 %; NEUTROPHILS # (AUTO) 6.7 10^3/uL (1.5-6.6); NEUTROPHILS % (AUTO) 64.6 %; PLT - PLATELET COUNT 200 10^3/uL (130-450); RED BLOOD COUNT 4.45 10^6/uL (4.20-5.40); RED CELL DISTRIBUTION WIDTH 14.2 % (12.0-15.0); WHITE BLOOD COUNT 10.3 x10^3/uL (4.8-10.8)
[2020-07-21 18:04] LABS: AMPHETAMINE SCREEN,URINE NEGATIVE (NEGATIVE); BARBITURATE SCREEN,UR NEGATIVE (NEGATIVE); BENZODIAZEPINES SCREEN, URINE POSITIVE (NEGATIVE); COCAINE SCREEN URINE NEGATIVE (NEGATIVE); METHADONE SCREEN, URINE NEGATIVE (NEGATIVE); METHAMPHETAMINES SCREEN, URINE NEGATIVE (NEGATIVE); OPIATE SCREEN, URINE NEGATIVE (NEGATIVE); OXYCODONE SCREEN, URINE NEGATIVE (NEGATIVE); PROPOXYPHENE SCREEN, URINE NEGATIVE (NEGATIVE); THC CANNABINOID SCREEN, URINE POSITIVE (NEGATIVE); TRICYCLIC ANTIDEPRESSANT,URINE NEGATIVE (NEGATIVE)
[2020-07-21 18:12] LABS: ALBUMIN 4.7 g/dL (3.2-5.5); ALBUMIN/GLOBULIN RATIO 1.6 (1.0-2.2); BILIRUBIN,TOTAL 0.7 mg/dL (0.2-1.0); CALCIUM 9.4 mg/dL (8.5-10.3); CREATININE 1.3 mg/dL (0.4-1.0); POTASSIUM 3.3 mmol/L (3.5-5.0); TOTAL PROTEIN 7.7 g/dL (6.7-8.2)
[2020-07-21 18:46] VITALS: BP 109/68
== END 2020-07-21 18:46 | disposition home or self-care (01) ==
LOC: ED 16:49
DX: R63.0 Anorexia (principal); R63.4 Abnormal weight loss; R51.9 Headache, unspecified; I10 Essential (primary) hypertension; N28.9 Disorder of kidney and ureter, unspecified; F17.200 Nicotine dependence, unspecified, uncomplicated
CPT/HCPCS: 36415; 80053; 80306; 84443; 85025; 99284

== ENCOUNTER 2020-09-09 08:00 | Outpatient (CLI) | payer MEDICAID ==
[2020-09-09 20:48] LABS: BASOPHILS # (AUTO) 0.1 10^3/uL (0.0-0.1); BASOPHILS % (AUTO) 0.7 %; EOSINOPHILS # (AUTO) 0.3 10^3/uL (0.0-0.7); EOSINOPHILS % (AUTO) 3.6 %; HCT - HEMATOCRIT 46.2 % (37.0-47.0); HGB - HEMOGLOBIN 14.8 g/dL (12.0-16.0); LYMPHOCYTES # (AUTO) 3.4 10^3/uL (1.5-3.5); LYMPHOCYTES % (AUTO) 37.7 %; MEAN CORPUSCULAR HEMOGLOBIN 31.6 pg (27.0-31.0); MEAN CORPUSCULAR VOLUME 98.5 fL (81.0-99.0); MEAN PLATELET VOLUME 10.4 fL (7.9-10.8); MONOCYTES # (AUTO) 0.6 10^3/uL (0.0-1.0); NEUTROPHILS # (AUTO) 4.7 10^3/uL (1.5-6.6); NEUTROPHILS % (AUTO) 51.7 %; PLT - PLATELET COUNT 282 10^3/uL (130-450); RED BLOOD COUNT 4.69 10^6/uL (4.20-5.40); RED CELL DISTRIBUTION WIDTH 14.6 % (12.0-15.0); WHITE BLOOD COUNT 9.1 x10^3/uL (4.8-10.8)
[2020-09-09 20:59] LABS: ALBUMIN 5.2 g/dL (3.2-5.5); ALBUMIN/GLOBULIN RATIO 1.5 (1.0-2.2); BILIRUBIN,TOTAL 0.6 mg/dL (0.2-1.0); CALCIUM 10.3 mg/dL (8.5-10.3); CREATININE 0.9 mg/dL (0.4-1.0); POTASSIUM 4.8 mmol/L (3.5-5.0); TOTAL PROTEIN 8.6 g/dL (6.7-8.2)
== END 2020-09-09 23:59 | disposition home or self-care (01) ==
LOC: LAB.N 08:00
PROVIDERS: ATTEND Physician Assistant Medical
DX: R10.9 Unspecified abdominal pain (principal)
CPT/HCPCS: 36415; 80053; 83690; 85025; 87086

== ENCOUNTER 2021-01-01 17:48 | Emergency (ER) | payer OTHER, MEDICAID ==
[2021-01-01 18:02] VITALS: BP 112/56
--- NOTE | 2021-01-01 18:24 | ED Physician Documentation ---
PD HPI LOWER EXT INJURY - Stated complaint Stated Complaint: LEFT LEG LAC - Chief complaint Chief Complaint: Laceration - History obtained from History obtained from: Patient - History of Present Illness PD HPI LOW EXT INJURY LOCATION: Left (65-year-old woman who is up-to-date on tetanus lacerated her left leg on an oxygen tank that fell against her benavides yesterday at work a little over 24 hours ago. With persistent bleeding and wound care concerns.) Review of Systems Constitutional: reports: Reviewed and negative Eyes: reports: Reviewed and negative Ears: reports: Reviewed and negative Nose: reports: Reviewed and negative Throat: reports: Reviewed and negative Cardiac: reports: Reviewed and negative PD PAST MEDICAL HISTORY - Past Medical History Cardiovascular: Hypertension, High cholesterol, Arrhythmia, Other Respiratory: Asthma, COPD, Pneumonia Endocrine/Autoimmune: None GI: Cirrhosis, Diverticulitis, Cholelithiasis, Other : Renal insuffiency, Other HEENT: None Psych: Anxiety, Post traumatic stress disorder Musculoskeletal: None Derm: None - Past Surgical History Past Surgical History: Yes General: Cholecystectomy, Colonoscopy, EGD 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, 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 Cardiovascular: Other - Present Medications Home Medications: Ambulatory Orders Medication Instructions Recorded Confirmed Estradiol [Estrace] 2 mg PO DAILY 08/20/13 05/30/17 Albuterol Sulfate [Proair Hfa] 90 mcg INH Q4HR PRN 01/03/14 05/30/17 Albuterol Sulfate [Proair Hfa 2 puffs IH QID #1 hfa.aer.ad 12/02/16 05/30/17 Inhaler] Beclomethasone 80 Mcg [Qvar 80] 1 puffs PO BID 12/02/16 05/30/17 Gabapentin [Neurontin] 300 mg PO BID 12/02/16 05/30/17 [place]-3/Dha/Epa/Fish Oil [Fish Oil 2 cap PO BID 12/02/16 05/30/17 1,360 mg Softgel] allopurinoL [Allopurinol] 100 mg PO DAILY 12/02/16 05/30/17 Albuterol Sulfate [Proventil Hfa 1 - 2 puffs IH Q4H PRN #1 02/27/17 05/30/17 Inhaler] hfa.aer.ad Doxycycline Hyclate 100 mg PO BID #14 tablet 02/27/17 05/30/17 predniSONE [Deltasone] 20 mg PO [id number] #21 tab 02/27/17 05/30/17 Albuterol 2.5 mg INH Q4H PRN #30 neb 12/27/17 Albuterol Sulf [Ventolin Hfa 1 - 2 puffs INH Q4HR PRN #1 inhaler 12/27/17 Inhaler] Benzonatate [Tessalon] 100 mg PO TID PRN #25 capsule 12/27/17 predniSONE [Deltasone] 40 mg PO DAILY 5 Days #10 tablet 12/27/17 - Allergies Allergies/Adverse Reactions: Allergies Allergy/AdvReac Type Severity Reaction Status Date / Time Sulfa (Sulfonamide Allergy Intermediate Hives Verified 01/01/21 18:02 Antibiotics) varenicline [From Chantix] Allergy Unknown Verified 01/01/21 18:02 codeine AdvReac Itching Verified 01/01/21 18:02 morphine AdvReac Anxiety Verified 01/01/21 18:02 - Social History Does the pt smoke?: Yes Smoking Status: Current every day smoker Does the pt drink ETOH?: No Does the pt have substance abuse?: No - Immunizations Immunizations are current?: Yes - POLST Patient has POLST: No PD ED PE NORMAL - Vitals Vital signs reviewed: Yes - General General: Alert and oriented X 3, No acute distress - Extremities Extremities: Other (There is a skin tear on the left lower extremity that is modestly deep without signs of infection. It measures 3 cm) - Neuro Neuro: Alert and oriented X 3, Normal speech - Psych Psych: Normal mood, Normal affect Results - Vitals Vitals: Vital Signs - 24 hr 01/01/21 17:55 Temperature 36.3 C L Heart Rate 58 L Respiratory 16 Rate Blood Pressure 112/56 L O2 Saturation 97 Oxygen O2 Source [With Activity] Nasal cannula O2 Source [Without Activity] Nasal cannula O2 Source Room air Procedures - Laceration (location) Left leg Length in cm: 3 Wound type: Superficial, Into subcut fat Neurovascular status: Sensory intact, Motor intact, Vascular intact Wound preparation: Irrigated copiously NS Skin layer closure: Steri strips Other: Tetanus UTD Departure - Departure Disposition: 01 Home, Self Care Clinical Impression: Laceration Condition: Good Record reviewed to determine appropriate education?: Yes Instructions: ED Laceration Ext Sutr Stap Tape
== END 2021-01-01 18:35 | disposition home or self-care (01) ==
LOC: ED 17:48
DX: S81.812A Laceration without foreign body, left lower leg, initial encounter (principal); W26.8XXA Contact with other sharp object(s), not elsewhere classified, initial encounter; Y99.0 Civilian activity done for income or pay; I10 Essential (primary) hypertension; J44.9 Chronic obstructive pulmonary disease, unspecified; F17.200 Nicotine dependence, unspecified, uncomplicated; F43.10 Post-traumatic stress disorder, unspecified; F41.9 Anxiety disorder, unspecified; Z79.51 Long term (current) use of inhaled steroids; Z79.52 Long term (current) use of systemic steroids; Z79.899 Other long term (current) drug therapy
CPT/HCPCS: 1040M; 12002; 99281; 99282

== ENCOUNTER 2021-01-14 14:44 | Emergency (ER) | payer OTHER, MEDICAID ==
[2021-01-14] MEDS ORDERED: ceFAZolin 1 GM VIAL IM STA (15:16)
--- NOTE | 2021-01-14 15:18 | ED Physician Documentation ---
PD HPI WOUND RECHECK - Stated complaint Stated Complaint: LT LEG WOUND - Chief complaint Chief Complaint: Wound - Histroy obtained from History obtained from: Patient - Additional information Additional information: 65-year-old woman with history of tobacco use had a work-related laceration of the left leg about 12 days ago. She was seen here, she was already over 24 hours after the injury was sustained so it was irrigated and Steri-Stripped. She states that after the Steri-Strips were placed there was a lot of redness and swelling which improved but has not resolved after the Steri-Strips are removed. No fevers. Review of Systems Constitutional: reports: Reviewed and negative Eyes: reports: Reviewed and negative Ears: reports: Reviewed and negative Nose: reports: Reviewed and negative Throat: reports: Reviewed and negative Cardiac: reports: Reviewed and negative PD PAST MEDICAL HISTORY - Past Medical History Cardiovascular: Hypertension, High cholesterol, Arrhythmia, Other Respiratory: Asthma, COPD, Pneumonia Endocrine/Autoimmune: None GI: Cirrhosis, Diverticulitis, Cholelithiasis, Other : Renal insuffiency, Other HEENT: None Psych: Anxiety, Post traumatic stress disorder Musculoskeletal: None Derm: None - Past Surgical History Past Surgical History: Yes General: Cholecystectomy, Colonoscopy, EGD 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, 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 Cardiovascular: Other - Present Medications Home Medications: Ambulatory Orders Medication Instructions Recorded Confirmed Estradiol [Estrace] 2 mg PO DAILY 08/20/13 01/14/21 Gabapentin [Neurontin] 300 mg PO BID 12/02/16 01/14/21 allopurinoL [Allopurinol] 100 mg PO DAILY 12/02/16 01/14/21 Albuterol Sulfate [Proventil Hfa 1 - 2 puffs IH Q4H PRN #1 02/27/17 01/14/21 Inhaler] hfa.aer.ad Bupropion HCl [Wellbutrin Xl] 300 mg PO DAILY 01/14/21 01/14/21 Oxybutynin Chloride [Ditropan Xl] 15 mg PO DAILY 01/14/21 01/14/21 Venlafaxine ER [Effexor ER] 150 mg PO DAILY 01/14/21 01/14/21 cephALEXin [Keflex] 500 mg PO Q6H #28 cap 01/14/21 - Allergies Allergies/Adverse Reactions: Allergies Allergy/AdvReac Type Severity Reaction Status Date / Time Sulfa (Sulfonamide Allergy Intermediate Hives Verified 01/14/21 14:51 Antibiotics) varenicline [From Chantix] Allergy Unknown Verified 01/14/21 14:51 codeine AdvReac Itching Verified 01/14/21 14:51 morphine AdvReac Anxiety Verified 01/14/21 14:51 - Social History Does the pt smoke?: Yes Smoking Status: Current every day smoker Does the pt drink ETOH?: No Does the pt have substance abuse?: No - Immunizations Immunizations are current?: Yes - POLST Patient has POLST: No PD ED PE NORMAL - Vitals Vital signs reviewed: Yes - General General: Alert and oriented X 3, No acute distress - Derm Derm: Other (There is a granulating scabbed over wound on the left lower extremity with minimal surrounding cellulitis and just a dot of purulent material at the base which was sent for culture.) - Neuro Neuro: Alert and oriented X 3, Normal speech Results - Vitals Vitals: Vital Signs - 24 hr 01/14/21 01/14/21 14:51 15:57 Temperature 36.8 C 36.9 C Heart Rate 105 H 91 Respiratory 16 18 Rate Blood Pressure 121/68 111/66 O2 Saturation 96 96 Oxygen O2 Source [With Activity] Nasal cannula O2 Source [Without Activity] Nasal cannula O2 Source Room air PD MEDICAL DECISION MAKING - ED course ED course: 65-year-old woman with mild wound infection. It was cleansed and a culture was taken. She is started on antibiotics. Discussed follow-up and potential wound care referral if not improving quickly. Departure - Departure Disposition: 01 Home, Self Care Clinical Impression: Wound infection Condition: Good Record reviewed to determine appropriate education?: Yes Instructions: ED Infec Skin Cellulitis Prescriptions: cephALEXin [Keflex] 500 mg PO Q6H #28 cap Comments: Prescription sent electronically to [facility] in [place]. If not improving over the next few days, go to the walk-in clinic on [facility] for reevaluation and consideration for wound care referral. Return if worsening or if you run a fever. We are performing a wound culture, the results should be done in 48-72 hours. If antibiotic change is necessary we will call you. Return if worse in the meantime, especially if you develop increased pain, fevers, cannot keep down the medication. Otherwise follow-up with your physician in approximately 2-3 days. Discharge Date/Time: 01/14/21 15:59
[2021-01-14 15:58] VITALS: BP 111/66
--- NOTE | 2021-01-16 13:25 | ED Physician Documentation ---
ED Addendum - Addendum Addendum: 01/16/21 13:24 Wound culture was reviewed, positive for Staph aureus, not tested against cephalexin, penicillin resistant. We will change to clindamycin 300 mg p.o. every 6 hours x7 days dispense #28. Departure - Departure Disposition: 01 Home, Self Care Clinical Impression: Wound infection Condition: Good Instructions: ED Infec Skin Cellulitis Prescriptions: clindamycin HCL [Cleocin HCl] 300 mg PO Q6H #28 cap cephALEXin [Keflex] 500 mg PO Q6H #28 cap Comments: Prescription sent electronically to [facility] in [place]. If not improving over the next few days, go to the walk-in clinic on [facility] for reevaluation and consideration for wound care referral. Return if worsening or if you run a fever. We are performing a wound culture, the results should be done in 48-72 hours. If antibiotic change is necessary we will call you. Return if worse in the meantime, especially if you develop increased pain, fevers, cannot keep down the medication. Otherwise follow-up with your physician in approximately 2-3 days. Discharge Date/Time: 01/14/21 15:59
== END 2021-01-14 15:59 | disposition home or self-care (01) ==
LOC: ED 14:44
DX: S81.812A Laceration without foreign body, left lower leg, initial encounter (principal); L08.9 Local infection of the skin and subcutaneous tissue, unspecified; B95.61 Methicillin susceptible Staphylococcus aureus infection as the cause of diseases classified elsewhere; X58.XXXA Exposure to other specified factors, initial encounter; Y99.0 Civilian activity done for income or pay; I10 Essential (primary) hypertension; F17.200 Nicotine dependence, unspecified, uncomplicated
CPT/HCPCS: 87070; 87181; 87205; 96372; 99283

== ENCOUNTER 2021-03-17 13:59 | Outpatient (CLI) | payer MEDICAID | END 2021-03-17 14:00 | disposition critical access hospital (66) | LOC: EMS 13:59 | DX: R00.2 Palpitations (principal) | CPT/HCPCS: A0425; A0427; A0999 ==

== ENCOUNTER 2021-03-17 14:17 | Emergency (ER) | payer MEDICAID ==
[2021-03-17] MEDS ORDERED: KETOROLAC 30 MG/ML VIAL IVP STA (14:29)
[2021-03-17] MEDS ORDERED: DEXAMETHASONE 10 MG/ML VIAL IVP STA (14:29)
--- NOTE | 2021-03-17 14:31 | ED Physician Documentation ---
PD HPI CHEST PAIN - Chief complaint Chief Complaint: Cardiac - History obtained from History obtained from: Patient - History of Present Illness Timing - onset: How many days ago (5) Timing - onset during: Rest Timing - duration: Days (5) Timing - details: Abrupt onset, Still present Quality: Sharp, Pain Location: Substernal, Left chest Improved by: Rest Worsened by: Exertion, Inspiration, Movement, Palpation, Position Associated symptoms: Shortness of air, Nausea, Vomiting, Palpitations, Cough. No: Diaphoresis Similar symptoms before: Has not had sx before Recently seen: Clinic - Additional information Additional information: 65-year-old female with a history of COPD is gone to her doctor today with a complaint of some chest pain. She has pain in the left side of her chest and electrocardiogram was done showing a left bundle branch block and she was shipped to the hospital. The patient herself states that she has had this pain for about 5 days it hurts to take a deep breath hurts to push on the chest wall. She did have a fall out of her bed onto a coffee table about 5 days ago. She denies any shortness of breath with this she denies any fever with this she does have some chronic abdominal pain and this is currently active. She is having some burning-like sensation in the abdomen and she is constipated. She is fully vaccinated against Covid and she denies any current fever. pt has hx of LBBB. Review of Systems Constitutional: denies: Fever Eyes: denies: Decreased vision Ears: denies: Ear pain Nose: denies: Rhinorrhea / runny nose, Congestion Throat: denies: Sore throat Cardiac: reports: Chest pain / pressure, Palpitations. denies: Pedal edema, Calf pain Respiratory: reports: Cough. denies: Dyspnea, Wheezing GI: reports: Abdominal Pain, Nausea, Vomiting, Constipation : denies: Dysuria, Frequency Skin: denies: Rash Musculoskeletal: denies: Neck pain, Back pain, Extremity pain PD PAST MEDICAL HISTORY - Past Medical History Cardiovascular: Hypertension, High cholesterol, Arrhythmia, Other Respiratory: Asthma, COPD, Pneumonia Endocrine/Autoimmune: None GI: Cirrhosis, Diverticulitis, Cholelithiasis, Other : Renal insuffiency, Other HEENT: None Psych: Anxiety, Post traumatic stress disorder Musculoskeletal: None Derm: None - Past Surgical History Past Surgical History: Yes General: Cholecystectomy, Colonoscopy, EGD 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, 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 Cardiovascular: Other - Present Medications Home Medications: Ambulatory Orders Medication Instructions Recorded Confirmed Estradiol [Estrace] 2 mg PO DAILY 08/20/13 01/14/21 Gabapentin [Neurontin] 300 mg PO BID 12/02/16 01/14/21 allopurinoL [Allopurinol] 100 mg PO DAILY 12/02/16 01/14/21 Albuterol Sulfate [Proventil Hfa 1 - 2 puffs IH Q4H PRN #1 02/27/17 01/14/21 Inhaler] hfa.aer.ad Bupropion HCl [Wellbutrin Xl] 300 mg PO DAILY 01/14/21 01/14/21 Oxybutynin Chloride [Ditropan Xl] 15 mg PO DAILY 01/14/21 01/14/21 Venlafaxine ER [Effexor ER] 150 mg PO DAILY 01/14/21 01/14/21 cephALEXin [Keflex] 500 mg PO Q6H #28 cap 01/14/21 clindamycin HCL [Cleocin HCl] 300 mg PO Q6H #28 cap 01/16/21 - Allergies Allergies/Adverse Reactions: Allergies Allergy/AdvReac Type Severity Reaction Status Date / Time Sulfa (Sulfonamide Allergy Intermediate Hives Verified 03/17/21 14:27 Antibiotics) varenicline [From Chantix] Allergy Unknown Verified 03/17/21 14:27 codeine AdvReac Itching Verified 03/17/21 14:27 morphine AdvReac Anxiety Verified 03/17/21 14:27 - Social History Does the pt smoke?: Yes Smoking Status: Current every day smoker Does the pt drink ETOH?: No Does the pt have substance abuse?: No - Immunizations Immunizations are current?: Yes - POLST Patient has POLST: No PD ED PE NORMAL - Vitals Vital signs reviewed: Yes (normal ) - General General: Alert and oriented X 3, No acute distress, Well developed/nourished - HEENT HEENT: Atraumatic, PERRL, EOMI - Neck Neck: Supple, no meningeal sign, No bony TTP - Cardiac Cardiac: RRR, No murmur - Respiratory Respiratory: No respiratory distress, Clear bilaterally, Other (chest wall tenderness to the left chest wall reproduces the symptoms the patient is having. 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, No motor deficit, No sensory deficit, Normal speech Eye Opening: Spontaneous Motor: Obeys Commands Verbal: Oriented GCS Score: 15 - Psych Psych: Normal mood, Normal affect Results - Vitals Vitals: Vital Signs - 24 hr 03/17/21 03/17/21 14:23 16:05 Temperature 36.6 C 36.5 C Heart Rate 90 87 Respiratory 16 22 Rate Blood Pressure 128/74 116/63 O2 Saturation 99 96 Oxygen O2 Source [] Nasal cannula O2 Source [] Nasal cannula O2 Source Room air - EKG (time done) 1435 Rate: Rate (enter#) (88) Rhythm: NSR, LAE Intervals: LBBB Ischemia: ST elevation c/w repol Compare to prior EKG: Unchanged from prior EKG (SPT 01/03/2018 no changes) Computer interpretation: Agree with computer - Labs Labs: Laboratory Tests 03/17/21 03/17/21 03/17/21 14:40 14:40 14:40 WBC 15.1 H RBC 3.82 L Hgb 12.1 Hct 37.1 MCV 97.1 MCH 31.7 H MCHC 32.6 RDW 13.4 Plt Count 241 MPV 10.0 Neut # (Auto) 10.5 H Lymph # (Auto) 3.2 [place] # (Auto) 1.1 H Eos # (Auto) 0.2 Baso # (Auto) 0.1 Absolute Nucleated RBC 0.00 Nucleated RBC % 0.0 Sodium 138 Potassium 3.5 Chloride 100 L Carbon Dioxide 27 Anion Gap 11.0 BUN 18 Creatinine 1.1 H Estimated GFR (MDRD) 50 L Glucose 115 H Calcium 9.3 Total Bilirubin 0.3 AST 13 ALT 13 Alkaline Phosphatase 84 Troponin I High Sens 4.4 Total Protein 7.5 Albumin 4.1 Globulin 3.4 Albumin/Globulin Ratio 1.2 Lipase 25 - Rads (name of study) chest Radiology: Prelim report reviewed (Impression: No acute pulmonary process.), EMP read indepedently, See rad report PD MEDICAL DECISION MAKING - ED course Complexity details: reviewed old records, reviewed results, re-evaluated patient, considered differential, d/w patient ED course: 65-year-old female with a history of COPD has fallen off of her couch hit her chest on the coffee table and 5 days later has a peak in her chest wall pain. She has reproducible chest wall tenderness and she has negative findings on electrocardiogram and blood work including negative supra sensitive troponin. Departure - Departure Disposition: 01 Home, Self Care Clinical Impression: Chest wall pain Condition: Stable Instructions: ED Contusion Chest Wall Follow-Up: Paula Kovacs ARNP [Primary Care Provider] - Discharge Date/Time: 03/17/21 16:19
[2021-03-17 14:46] LABS: BASOPHILS # (AUTO) 0.1 10^3/uL (0.0-0.1); BASOPHILS % (AUTO) 0.4 %; EOSINOPHILS # (AUTO) 0.2 10^3/uL (0.0-0.7); EOSINOPHILS % (AUTO) 1.5 %; HCT - HEMATOCRIT 37.1 % (37.0-47.0); HGB - HEMOGLOBIN 12.1 g/dL (12.0-16.0); LYMPHOCYTES # (AUTO) 3.2 10^3/uL (1.5-3.5); LYMPHOCYTES % (AUTO) 21.1 %; MEAN CORPUSCULAR HEMOGLOBIN 31.7 pg (27.0-31.0); MEAN CORPUSCULAR HGB CONC 32.6 g/dL (32.0-36.0); MEAN CORPUSCULAR VOLUME 97.1 fL (81.0-99.0); MONOCYTES # (AUTO) 1.1 10^3/uL (0.0-1.0); NEUTROPHILS # (AUTO) 10.5 10^3/uL (1.5-6.6); NEUTROPHILS % (AUTO) 69.5 %; PLT - PLATELET COUNT 241 10^3/uL (130-450); RED BLOOD COUNT 3.82 10^6/uL (4.20-5.40); RED CELL DISTRIBUTION WIDTH 13.4 % (12.0-15.0); WHITE BLOOD COUNT 15.1 x10^3/uL (4.8-10.8)
[2021-03-17 14:58] LABS: ALBUMIN 4.1 g/dL (3.2-5.5); ALBUMIN/GLOBULIN RATIO 1.2 (1.0-2.2); BILIRUBIN,TOTAL 0.3 mg/dL (0.2-1.0); CALCIUM 9.3 mg/dL (8.5-10.3); CREATININE 1.1 mg/dL (0.4-1.0); POTASSIUM 3.5 mmol/L (3.5-5.0); TOTAL PROTEIN 7.5 g/dL (6.7-8.2)
--- NOTE | 2021-03-17 15:23 | XRAY Report ---
PROCEDURE: Chest 1 View X-Ray INDICATIONS: chest pain TECHNIQUE: One view of the chest was acquired. COMPARISON: Chest x-ray report 07/21/2020, images are not available for comparison. FINDINGS: Surgical changes and devices: None. Lungs and pleura: No pleural effusions or pneumothorax. Lungs are clear. Mediastinum: Mediastinal contours appear normal. Heart size is normal. Bones and chest wall: No suspicious bony lesions. Overlying soft tissues appear unremarkable. IMPRESSION: No acute pulmonary process. Reviewed by: Ana Nolasco MD on 03/17/2021 3:21 PM PDT Approved by: Ana Nolasco MD on 03/17/2021 3:21 PM PDT Station ID: [id number]
[2021-03-17 16:05] VITALS: BP 116/63
== END 2021-03-17 16:19 | disposition home or self-care (01) ==
LOC: EDUNIT# → ED 14:17 → SUPCPDRO 14:17 → ED 16:19
DX: R07.89 Other chest pain (principal); W08.XXXA Fall from other furniture, initial encounter; Y92.009 Unspecified place in unspecified non-institutional (private) residence as the place of occurrence of the external cause; I44.7 Left bundle-branch block, unspecified; I10 Essential (primary) hypertension; J44.9 Chronic obstructive pulmonary disease, unspecified; F17.200 Nicotine dependence, unspecified, uncomplicated
CPT/HCPCS: 36415; 80053; 83690; 84484; 85025; 93005; 96374; 96375; 99284

== ENCOUNTER 2021-06-07 08:00 | Outpatient (CLI) | payer MEDICAID ==
[2021-06-07 18:26] LABS: BASOPHILS # (AUTO) 0.1 10^3/uL (0.0-0.1); BASOPHILS % (AUTO) 0.7 %; EOSINOPHILS # (AUTO) 0.3 10^3/uL (0.0-0.7); EOSINOPHILS % (AUTO) 3.6 %; HCT - HEMATOCRIT 36.6 % (37.0-47.0); LYMPHOCYTES # (AUTO) 3.1 10^3/uL (1.5-3.5); LYMPHOCYTES % (AUTO) 32.7 %; MEAN CORPUSCULAR HEMOGLOBIN 32.1 pg (27.0-31.0); MEAN CORPUSCULAR HGB CONC 32.8 g/dL (32.0-36.0); MEAN CORPUSCULAR VOLUME 97.9 fL (81.0-99.0); MEAN PLATELET VOLUME 11.5 fL (7.9-10.8); MONOCYTES # (AUTO) 0.7 10^3/uL (0.0-1.0); NEUTROPHILS # (AUTO) 5.2 10^3/uL (1.5-6.6); NEUTROPHILS % (AUTO) 55.8 %; PLT - PLATELET COUNT 202 10^3/uL (130-450); RED BLOOD COUNT 3.74 10^6/uL (4.20-5.40); RED CELL DISTRIBUTION WIDTH 14.4 % (12.0-15.0); WHITE BLOOD COUNT 9.4 x10^3/uL (4.8-10.8)
[2021-06-07 18:57] LABS: ALBUMIN 4.1 g/dL (3.2-5.5); ALBUMIN/GLOBULIN RATIO 1.4 (1.0-2.2); BILIRUBIN,TOTAL 0.3 mg/dL (0.2-1.0); CALCIUM 9.3 mg/dL (8.5-10.3); POTASSIUM 3.7 mmol/L (3.5-5.0)
== END 2021-06-07 23:59 | disposition home or self-care (01) ==
LOC: LAB.WCP 08:00
PROVIDERS: ATTEND Physician Assistant Medical
DX: R30.0 Dysuria (principal)
CPT/HCPCS: 36415; 80048; 80053; 85025

== ENCOUNTER 2021-07-14 18:17 | Outpatient (CLI) | payer MEDICAID ==
[2021-07-14 21:15] LABS: BASOPHILS # (AUTO) 0.1 10^3/uL (0.0-0.1); BASOPHILS % (AUTO) 1.3 %; EOSINOPHILS # (AUTO) 0.2 10^3/uL (0.0-0.7); HCT - HEMATOCRIT 40.8 % (37.0-47.0); HGB - HEMOGLOBIN 13.4 g/dL (12.0-16.0); LYMPHOCYTES # (AUTO) 3.9 10^3/uL (1.5-3.5); LYMPHOCYTES % (AUTO) 50.3 %; MEAN CORPUSCULAR HEMOGLOBIN 31.9 pg (27.0-31.0); MEAN CORPUSCULAR HGB CONC 32.8 g/dL (32.0-36.0); MEAN CORPUSCULAR VOLUME 97.1 fL (81.0-99.0); MONOCYTES # (AUTO) 0.5 10^3/uL (0.0-1.0); MONOCYTES % (AUTO) 6.7 %; NEUTROPHILS % (AUTO) 38.4 %; PLT - PLATELET COUNT 199 10^3/uL (130-450); WHITE BLOOD COUNT 7.7 x10^3/uL (4.8-10.8)
[2021-07-14 21:20] LABS: ESTIMATED AVERAGE GLUCOSE 105 mg/dL (70-100); HEMOGLOBIN A1c% 5.3 % (4.27-6.07)
[2021-07-14 21:35] LABS: ALBUMIN 4.9 g/dL (3.2-5.5); ALBUMIN/GLOBULIN RATIO 1.8 (1.0-2.2); ALKALINE PHOSPHATASE 71 IU/L (42-121); ALT ALANINE AMINOTRANSFERASE 12 IU/L (10-60); AMYLASE 68 U/L (28-100); AST ASPARTATE AMINOTRANSFERASE 15 IU/L (10-42); BILIRUBIN,TOTAL 0.7 mg/dL (0.2-1.0); BUN - BLOOD UREA NITROGEN 20 mg/dL (6-20); CALCIUM 9.3 mg/dL (8.5-10.3); CARBON DIOXIDE - CO2 27 mmol/L (21-32); CHLORIDE 101 mmol/L (101-111); CHOL/HDL RATIO 5.1 (<4.4); CHOLESTEROL 275 mg/dL; GFR - MDRD 56 (>89); GLUCOSE 86 mg/dL (70-100); HDL CHOLESTEROL 54 mg/dL; LDL CHOLESTEROL,CALCULATED 179 mg/dL; LDL/HDL RATIO 3.3 (<4.4); LIPASE 37 U/L (22-51); POTASSIUM 4.1 mmol/L (3.5-5.0); SODIUM 136 mmol/L (135-145); TOTAL PROTEIN 7.7 g/dL (6.7-8.2); TRIGLYCERIDES 211 mg/dL; VLDL CHOLESTEROL 42 mg/dL
[2021-07-14 21:44] LABS: THYROID STIMULATING HORMONE 1.03 uIU/mL (0.34-5.60)
== END 2021-07-14 18:18 | disposition home or self-care (01) ==
LOC: LAB.N 18:17
PROVIDERS: ATTEND Nurse Practitioner
DX: R10.30 Lower abdominal pain, unspecified (principal); E78.1 Pure hyperglyceridemia; R73.01 Impaired fasting glucose; R53.83 Other fatigue
CPT/HCPCS: 36415; 80050; 80061; 81001; 82150; 83036; 83690; 83721; 87086

== ENCOUNTER 2021-08-04 14:45 | Outpatient (CLI) | payer MEDICAID ==
[2021-08-04] MEDS ORDERED: IOVERSOL 320 50 ML VIAL ONE (15:01)
[2021-08-04] MEDS ORDERED: IOVERSOL 320 100 ML VIAL IVP ONE (15:01)
[2021-08-04] MEDS: IOVERSOL 320 100 ML VIAL IVP ONE (16:18)
[2021-08-04] MEDS: IOVERSOL 320 50 ML VIAL PO ONE (16:18)
--- NOTE | 2021-08-04 16:52 | CT Report ---
PROCEDURE: Abdomen/Pelvis W INDICATIONS: LOSS OF WEIGHT CONTRAST: IV CONTRAST: Optiray 320 ml: 100 PO CONTRAST: Optiray 320 ml50 TECHNIQUE: After the administration of oral and intravenous contrast, 5 mm thick sections acquired from the diap hragms to the symphysis. 5 mm thick coronal and sagittal reformats were acquired. For radiation dos e reduction, the following was used: automated exposure control, adjustment of mA and/or kV accordin g to patient size. COMPARISON: December 26, 2018 FINDINGS: Inferior chest: No focal consolidation, pleural effusion, or pneumothorax. No cardiomegaly or perica rdial effusion. Gallbladder: Cholecystectomy Biliary tree: No intra-or extrahepatic biliary ductal dilatation. Liver: The liver demonstrates normal enhancement, size, and contour. Spleen: Normal enhancement, size and morphology is seen. Pancreas: No contour deforming mass or inflammatory change. Adrenals: Normal size without masses. Kidneys/ureters: Normal size and morphology. No solid masses or hydronephrosis. Vasculature: No evidence of aneurysm or other significant vascular pathology. Lymphatic system: No pathologic enlargement by size criteria. GI/mesentery: No evidence of intestinal obstruction. Moderate to large stool throughout the colon. No rmal appearance of the appendix. Peritoneum/Retroperitoneum: No free intraperitoneal gas or large collection. Urinary bladder: Not well distended Pelvic organs: No significant abnormality. Bones/soft tissues: Multifocal degenerative change. Fatty atrophy of the right rectus muscle. Promine nt inguinal lymph nodes, which may be reactive. IMPRESSION: 1.No significant abnormality. Reviewed by: Avila Gamino MD on 08/04/2021 4:51 PM PDT Approved by: Avila Gamino MD on 08/04/2021 4:51 PM PDT Station ID: [id number]
== END 2021-08-04 14:46 | disposition home or self-care (01) ==
LOC: DI 14:45
PROVIDERS: ATTEND Physician Assistant Medical
DX: R63.4 Abnormal weight loss (principal)
CPT/HCPCS: 74177; Q9967

== ENCOUNTER 2021-08-10 13:25 | Outpatient (CLI) | payer MEDICAID ==
[2021-08-10 18:06] LABS: BILIRUBIN,URINE NEGATIVE (NEGATIVE); GLUCOSE, URINE (UA) NEGATIVE (NEGATIVE); KETONES,URINE (UA) NEGATIVE (NEGATIVE); LEUKOCYTE ESTERASE, URINE NEGATIVE (NEGATIVE); NITRITE,URINE NEGATIVE (NEGATIVE); OCCULT BLOOD,URINE NEGATIVE (NEGATIVE); PROTEIN,URINE NEGATIVE (NEGATIVE); UROBILINOGEN,URINE 0.2 (NORMAL) E.U./dL (NORMAL)
[2021-08-10 18:11] LABS: CLARITY,URINE CLEAR (CLEAR)
[2021-08-10 18:13] LABS: BASOPHILS # (AUTO) 0.1 10^3/uL (0.0-0.1); BASOPHILS % (AUTO) 0.9 %; EOSINOPHILS # (AUTO) 0.2 10^3/uL (0.0-0.7); EOSINOPHILS % (AUTO) 2.3 %; HCT - HEMATOCRIT 37.7 % (37.0-47.0); HGB - HEMOGLOBIN 12.3 g/dL (12.0-16.0); LYMPHOCYTES # (AUTO) 3.8 10^3/uL (1.5-3.5); MEAN CORPUSCULAR HEMOGLOBIN 31.9 pg (27.0-31.0); MEAN CORPUSCULAR HGB CONC 32.6 g/dL (32.0-36.0); MEAN CORPUSCULAR VOLUME 97.7 fL (81.0-99.0); MEAN PLATELET VOLUME 11.1 fL (7.9-10.8); MONOCYTES # (AUTO) 0.7 10^3/uL (0.0-1.0); MONOCYTES % (AUTO) 7.4 %; NEUTROPHILS # (AUTO) 4.1 10^3/uL (1.5-6.6); NEUTROPHILS % (AUTO) 46.2 %; PLT - PLATELET COUNT 237 10^3/uL (130-450); RED BLOOD COUNT 3.86 10^6/uL (4.20-5.40); RED CELL DISTRIBUTION WIDTH 13.9 % (12.0-15.0); WHITE BLOOD COUNT 8.8 x10^3/uL (4.8-10.8)
[2021-08-10 18:43] LABS: ALBUMIN 4.3 g/dL (3.2-5.5); ALBUMIN/GLOBULIN RATIO 1.5 (1.0-2.2); BILIRUBIN,TOTAL 0.4 mg/dL (0.2-1.0); CALCIUM 9.5 mg/dL (8.5-10.3); POTASSIUM 3.6 mmol/L (3.5-5.0); TOTAL PROTEIN 7.1 g/dL (6.7-8.2)
== END 2021-08-10 13:26 | disposition home or self-care (01) ==
LOC: LAB.N 13:25
PROVIDERS: ATTEND Nurse Practitioner
DX: E78.5 Hyperlipidemia, unspecified (principal); R19.7 Diarrhea, unspecified; R30.0 Dysuria; R06.02 Shortness of breath; Z91.89 Other specified personal risk factors, not elsewhere classified
CPT/HCPCS: 36415; 80053; 81001; 81003; 83880; 85025; 87086

== ENCOUNTER 2021-08-24 18:55 | Outpatient (CLI) | payer MEDICAID | END 2021-08-24 18:56 | disposition short-term general hospital (02) | LOC: EMS 18:55 | DX: R07.9 Chest pain, unspecified (principal); R55 Syncope and collapse; S00.83XA Contusion of other part of head, initial encounter; S49.92XA Unspecified injury of left shoulder and upper arm, initial encounter; W18.39XA Other fall on same level, initial encounter | CPT/HCPCS: A0425; A0427; A0999 ==

== ENCOUNTER 2021-09-06 14:48 | Outpatient (CLI) | payer MEDICAID ==
--- NOTE | 2021-09-06 16:38 | CT Report ---
PROCEDURE: Low Dose Lung Cancer Screen INDICATIONS: NICOTINE DEPENDENCE TECHNIQUE: Noncontrast low-dose images were acquired from the pulmonary apices to the posterior costophrenic ang les. Multiplanar MIP reformats were then acquired. For radiation dose reduction, the following was used: automated exposure control, adjustment of mA and/or kV according to patient size. Prior Cancer: None Lung Rad: 1 Lung Recommendation: Annual CT screening Lung Significant Findings: None COMPARISON: None. FINDINGS: Image quality: Excellent. Lungs and pleura: Minimal emphysematous changes are present. Pulmonary Bohler noted within the apice s. There are no consolidations or effusions. Mediastinum: Heart size is normal. No pericardial effusion. No mediastinal adenopathy by size crit eria. Thoracic aorta and central pulmonary arteries are normal in size. Esophagus is normal in lois yoav. No hiatal hernia. Bones and chest wall: No suspicious bony lesions. No vertebral body compression fractures. No axil mirlande or supraclavicular adenopathy by size criteria. The thyroid is normal in size and there are no incidental findings. Abdomen: Visualized upper abdomen solid organs and bowel loops appear normal in the absence of contr ast. IMPRESSION: No effusions, consolidations or nodules. CLINICAL RECOMMENDATION STATEMENTS: In patients <35 years with an ITN detected on CT, MRI, or extrathyroidal ultrasound, the Committee re commends further evaluation with dedicated thyroid ultrasound if the nodule is "e1 cm and has no susp icious imaging features, and if the patient has normal life expectancy. In patients "e35 years with an ITN detected on CT, MRI, or extrathyroidal ultrasound, the Committee r ecommends further evaluation with dedicated thyroid ultrasound if the nodule is "e1.5 cm and has no s uspicious imaging features, and if the patient has normal life expectancy. (ACR, 2014) Reviewed by: Ana Nolasco MD on 09/06/2021 4:37 PM PDT Approved by: Ana Nolasco MD on 09/06/2021 4:37 PM PDT Station ID: [id number]
== END 2021-09-06 14:49 | disposition home or self-care (01) ==
LOC: DI 14:48
PROVIDERS: ATTEND Nurse Practitioner
DX: Z12.2 Encounter for screening for malignant neoplasm of respiratory organs (principal); F17.210 Nicotine dependence, cigarettes, uncomplicated

== ENCOUNTER 2021-09-12 22:25 | Outpatient (CLI) | payer MEDICAID | END 2021-09-12 22:26 | disposition short-term general hospital (02) | LOC: EMS 22:25 | DX: I95.9 Hypotension, unspecified (principal); R55 Syncope and collapse | CPT/HCPCS: A0425; A0427; A0999 ==

== ENCOUNTER 2021-09-22 14:00 | Outpatient (CLI) | payer MEDICAID | END 2021-09-22 14:01 | disposition home or self-care (01) | LOC: MAC.MOP 14:00 | PROVIDERS: ATTEND Nurse Practitioner | DX: R55 Syncope and collapse (principal) | CPT/HCPCS: 93248 ==

== ENCOUNTER 2021-10-19 10:30 | Outpatient (CLI) | payer MEDICAID | END 2021-10-19 10:31 | disposition home or self-care (01) | LOC: MAC.MOP 10:30 | PROVIDERS: ATTEND Nurse Practitioner | DX: I47.1 Supraventricular tachycardia (principal); I49.1 Atrial premature depolarization | CPT/HCPCS: 93248 ==

== ENCOUNTER 2021-10-23 16:51 | Outpatient (CLI) | payer MEDICAID ==
[2021-10-23 21:21] LABS: BASOPHILS # (AUTO) 0.1 10^3/uL (0.0-0.1); EOSINOPHILS # (AUTO) 0.2 10^3/uL (0.0-0.7); EOSINOPHILS % (AUTO) 2.5 %; HCT - HEMATOCRIT 36.2 % (37.0-47.0); HGB - HEMOGLOBIN 11.7 g/dL (12.0-16.0); LYMPHOCYTES # (AUTO) 3.2 10^3/uL (1.5-3.5); LYMPHOCYTES % (AUTO) 34.4 %; MEAN CORPUSCULAR HGB CONC 32.3 g/dL (32.0-36.0); MEAN PLATELET VOLUME 12.1 fL (7.9-10.8); MONOCYTES # (AUTO) 0.9 10^3/uL (0.0-1.0); MONOCYTES % (AUTO) 9.4 %; NEUTROPHILS # (AUTO) 4.9 10^3/uL (1.5-6.6); NEUTROPHILS % (AUTO) 52.5 %; PLT - PLATELET COUNT 190 10^3/uL (130-450); RED BLOOD COUNT 3.55 10^6/uL (4.20-5.40); RED CELL DISTRIBUTION WIDTH 14.6 % (12.0-15.0); WHITE BLOOD COUNT 9.3 x10^3/uL (4.8-10.8)
[2021-10-23 21:32] LABS: ALBUMIN 4.4 g/dL (3.2-5.5); ALBUMIN/GLOBULIN RATIO 1.5 (1.0-2.2); BILIRUBIN,TOTAL 0.6 mg/dL (0.2-1.0); CALCIUM 9.7 mg/dL (8.5-10.3); CREATININE 0.9 mg/dL (0.4-1.0); POTASSIUM 4.4 mmol/L (3.5-5.0); TOTAL PROTEIN 7.3 g/dL (6.7-8.2)
[2021-10-23 21:50] LABS: THYROID STIMULATING HORMONE 0.29 uIU/mL (0.34-5.60)
[2021-10-23 21:52] LABS: FREE T4 (FREE THYROXINE) 0.81 ng/dL (0.58-1.64)
== END 2021-10-23 16:52 | disposition home or self-care (01) ==
LOC: LAB.N 16:51
PROVIDERS: ATTEND Nurse Practitioner
DX: R63.4 Abnormal weight loss (principal); R55 Syncope and collapse; R53.83 Other fatigue
CPT/HCPCS: 36415; 80050; 84439

== ENCOUNTER 2021-11-27 20:40 | Outpatient (CLI) | payer MEDICAID | END 2021-11-27 20:41 | disposition EMS.NT | LOC: EMS 20:40 | DX: S61.216A Laceration without foreign body of right little finger without damage to nail, initial encounter (principal); W29.2XXA Contact with other powered household machinery, initial encounter; Y92.009 Unspecified place in unspecified non-institutional (private) residence as the place of occurrence of the external cause ==

== ENCOUNTER 2022-06-11 10:47 | Outpatient (CLI) | payer MEDICAID | END 2022-06-11 10:48 | disposition critical access hospital (66) | LOC: EMS 10:47 | DX: F41.0 Panic disorder [episodic paroxysmal anxiety] (principal) | CPT/HCPCS: A0425; A0427; A0999 ==

== ENCOUNTER 2022-06-11 11:12 | Emergency (ER) | payer MEDICAID ==
[2022-06-11 11:27] VITALS: BP 116/65
--- NOTE | 2022-06-11 11:39 | ED Physician Documentation ---
PD HPI DYSPNEA - Stated complaint Stated Complaint: SOB/ANXIETY - Chief complaint Chief Complaint: Resp - History obtained from History obtained from: Patient, Family - Additional information Additional information: This is a 66-year-old female who presents while intoxicated with report of panic attack As well as shortness of breath. She presents with her significant other and refuses to speak to me stating that he can tell me everything. He states that she had a panic attack this morning And states that they have been drinking or other urine liquor this morning but "only a pint." She is complaining of shortness of breath but denies any cough or URI symptoms, no recent illness, no chest pain. She is not having any wheezing. She denies abdominal pain, nausea, vomiting, diarrhea, urinary symptoms. She had no fever or chills. She has not had a panic attack like this in the past And is not on any medication for anxiety or panic. She denies any drug use but does admit to alcohol. 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 Cardiovascular: Other - Present Medications Home Medications: Ambulatory Orders Medication Instructions Recorded Confirmed Estradiol [Estrace] 2 mg PO DAILY 08/20/13 01/14/21 Gabapentin [Neurontin] 300 mg PO BID 12/02/16 01/14/21 allopurinoL [Allopurinol] 100 mg PO DAILY 12/02/16 01/14/21 Albuterol Sulfate [Proventil Hfa 1 - 2 puffs IH Q4H PRN #1 02/27/17 01/14/21 Inhaler] hfa.aer.ad Bupropion HCl [Wellbutrin Xl] 300 mg PO DAILY 01/14/21 01/14/21 Oxybutynin Chloride [Ditropan Xl] 15 mg PO DAILY 01/14/21 01/14/21 Albuterol 1 puffs PO BID PRN 09/22/21 09/22/21 Metoprolol Succinate [Toprol Xl] 1 tab PO BID 09/22/21 09/22/21 clonazePAM [Clonazepam] 1 tab PO DAILY 09/22/21 09/22/21 - Allergies Allergies/Adverse Reactions: Allergies Allergy/AdvReac Type Severity Reaction Status Date / Time Sulfa (Sulfonamide Allergy Intermediate Hives Verified 09/22/21 14:46 Antibiotics) varenicline [From Chantix] Allergy Unknown Verified 09/22/21 14:46 codeine AdvReac Itching Verified 09/22/21 14:46 morphine AdvReac Anxiety Verified 09/22/21 14:46 - Social History Does the pt smoke?: Yes Smoking Status: Current every day smoker Does the pt drink ETOH?: No Does the pt have substance abuse?: No - Immunizations Immunizations are current?: Yes - POLST Patient has POLST: No PD ED PE NORMAL - Vitals Vital signs reviewed: Yes - General General: Other (Patient is intoxicated, crying hysterically, does not appear to be in medical distress.) - HEENT HEENT: Atraumatic, Moist mucous membranes, Pharynx benign - Neck Neck: Supple, no meningeal sign, No JVD - Cardiac Cardiac: RRR, No murmur - Respiratory Respiratory: No respiratory distress, Clear bilaterally - Abdomen Abdomen: Normal bowel sounds, Soft, Non tender, Non distended - Derm Derm: Normal color, Warm and dry, No rash - Extremities Extremities: No deformity, No tenderness to palpate, Normal ROM s pain, No edema - Neuro Eye Opening: Spontaneous Motor: Obeys Commands Verbal: Confused GCS Score: 14 - Psych Psych: Other (crying hysterically) Results - Vitals Vitals: Vital Signs - 24 hr 06/11/22 06/11/22 11:20 11:29 Temperature 36.2 C L Heart Rate 83 92 Respiratory 16 18 Rate Blood Pressure 116/65 116/65 O2 Saturation 98 95 Oxygen O2 Source [With Activity] Nasal cannula O2 Source [Without Activity] Nasal cannula O2 Source Room air - Labs Labs: Laboratory Tests 06/11/22 06/11/22 06/11/22 11:16 11:16 11:16 WBC 7.2 RBC 4.23 Hgb 13.7 Hct 42.9 MCV 101.4 H MCH 32.4 H MCHC 31.9 L RDW 13.7 Plt Count 203 MPV 9.3 Neut # (Auto) 2.4 Lymph # (Auto) 4.0 H [place] # (Auto) 0.5 Eos # (Auto) 0.2 Baso # (Auto) 0.1 Absolute Nucleated RBC 0.00 Nucleated RBC % 0.0 Sodium 140 Potassium 3.5 Chloride 104 Carbon Dioxide 23 Anion Gap 13.0 BUN 24 H Creatinine 1.1 H Estimated GFR (MDRD) 50 L Glucose 95 Calcium 9.1 Total Bilirubin 0.5 AST 21 ALT 14 Alkaline Phosphatase 58 Troponin I High Sens 3.7 Total Protein 8.0 Albumin 4.5 Globulin 3.5 Albumin/Globulin Ratio 1.3 Lipase 50 Ethyl Alcohol 333.0 PD Medical Decision Making - ED course Complexity details: reviewed results, considered differential, d/w patient, d/w family ED course: 66-year-old female presenting while intoxicated with complaint of anxiety and panic attack as well as shortness of breath. She is actually well on room air, and vitals are stable however patient is severely intoxicated and history burks ited. I discussed with patient and her partner that given her complaint of shortness of breath, I recommended that we obtain labs and x-ray which were done and were reassuring however in the meantime the patient eloped from the ED with her partner. She did not receive her results or discharge instructions or follow-up exam. Departure - Departure Disposition: ED [place] Clinical Impression: Panic attack Alcohol intoxication Qualifiers: Complication of substance-induced condition: uncomplicated Qualified Code(s): F10.920 - Alcohol use, unspecified with intoxication, uncomplicated Instructions: ED Alcohol Intoxication, ED Panic Attack Discharge Date/Time: 06/11/22 12:31
[2022-06-11 11:55] LABS: BASOPHILS # (AUTO) 0.1 10^3/uL (0.0-0.1); EOSINOPHILS # (AUTO) 0.2 10^3/uL (0.0-0.7); EOSINOPHILS % (AUTO) 2.8 %; HCT - HEMATOCRIT 42.9 % (37.0-47.0); HGB - HEMOGLOBIN 13.7 g/dL (12.0-16.0); LYMPHOCYTES % (AUTO) 56.2 %; MEAN CORPUSCULAR HEMOGLOBIN 32.4 pg (27.0-31.0); MEAN CORPUSCULAR HGB CONC 31.9 g/dL (32.0-36.0); MEAN CORPUSCULAR VOLUME 101.4 fL (81.0-99.0); MEAN PLATELET VOLUME 9.3 fL (7.9-10.8); MONOCYTES # (AUTO) 0.5 10^3/uL (0.0-1.0); MONOCYTES % (AUTO) 6.7 %; NEUTROPHILS # (AUTO) 2.4 10^3/uL (1.5-6.6); PLT - PLATELET COUNT 203 10^3/uL (130-450); RED BLOOD COUNT 4.23 10^6/uL (4.20-5.40); RED CELL DISTRIBUTION WIDTH 13.7 % (12.0-15.0); WHITE BLOOD COUNT 7.2 x10^3/uL (4.8-10.8)
[2022-06-11 11:59] LABS: ALBUMIN 4.5 g/dL (3.2-5.5); ALBUMIN/GLOBULIN RATIO 1.3 (1.0-2.2); BILIRUBIN,TOTAL 0.5 mg/dL (0.2-1.0); CALCIUM 9.1 mg/dL (8.5-10.3); CREATININE 1.1 mg/dL (0.4-1.0); POTASSIUM 3.5 mmol/L (3.5-5.0)
--- NOTE | 2022-06-11 12:46 | XRAY Report ---
PROCEDURE: Chest 1 View X-Ray INDICATIONS: chest pain TECHNIQUE: One view of the chest was acquired. COMPARISON: 2 views of the chest dated 07/21/2020. FINDINGS: Surgical changes and devices: None. Lungs and pleura: No pleural effusions or pneumothorax. Lungs are clear. Mediastinum: Mediastinal contours appear normal. Heart size is normal. Bones and chest wall: No suspicious bony lesions. Overlying soft tissues appear unremarkable. IMPRESSION: No acute cardiopulmonary findings. Reviewed by: Olga Marcos MD on 06/11/2022 12:45 PM PST Approved by: Olga Marcos MD on 06/11/2022 12:45 PM [facility] Station ID: [id number]
== END 2022-06-11 12:31 | disposition left against medical advice (07) ==
LOC: EDUNIT# → ED 11:12
DX: F10.90 Alcohol use, unspecified, uncomplicated (principal); F41.0 Panic disorder [episodic paroxysmal anxiety]; F17.200 Nicotine dependence, unspecified, uncomplicated
CPT/HCPCS: 36415; 80053; 80320; 83690; 84484; 85025; 99283; 99284

== ENCOUNTER 2022-06-22 22:31 | Outpatient (CLI) | payer MEDICAID | END 2022-06-22 22:32 | disposition left against medical advice (07) | LOC: EMS 22:31 | DX: R06.00 Dyspnea, unspecified (principal) ==

== ENCOUNTER 2022-10-01 18:11 | Emergency (ER) | payer MEDICAID ==
[2022-10-01 18:24] VITALS: BP 96/58
[2022-10-01 18:59] LABS: BASOPHILS # (AUTO) 0.1 10^3/uL (0.0-0.1); BASOPHILS % (AUTO) 0.7 %; EOSINOPHILS # (AUTO) 0.2 10^3/uL (0.0-0.7); EOSINOPHILS % (AUTO) 1.9 %; HCT - HEMATOCRIT 40.2 % (37.0-47.0); HGB - HEMOGLOBIN 13.1 g/dL (12.0-16.0); LYMPHOCYTES # (AUTO) 2.4 10^3/uL (1.5-3.5); LYMPHOCYTES % (AUTO) 20.6 %; MEAN CORPUSCULAR HEMOGLOBIN 33.4 pg (27.0-31.0); MEAN CORPUSCULAR HGB CONC 32.6 g/dL (32.0-36.0); MEAN CORPUSCULAR VOLUME 102.6 fL (81.0-99.0); MEAN PLATELET VOLUME 9.8 fL (7.9-10.8); MONOCYTES # (AUTO) 0.9 10^3/uL (0.0-1.0); MONOCYTES % (AUTO) 7.5 %; NEUTROPHILS # (AUTO) 7.9 10^3/uL (1.5-6.6); NEUTROPHILS % (AUTO) 68.8 %; PLT - PLATELET COUNT 191 10^3/uL (130-450); RED BLOOD COUNT 3.92 10^6/uL (4.20-5.40); RED CELL DISTRIBUTION WIDTH 13.8 % (12.0-15.0); WHITE BLOOD COUNT 11.5 x10^3/uL (4.8-10.8)
[2022-10-01 19:07] LABS: PT - PROTHROMBIN TIME 11.5 secs (9.9-12.6)
[2022-10-01 19:11] LABS: ALBUMIN 4.7 g/dL (3.2-5.5); ALBUMIN/GLOBULIN RATIO 1.3 (1.0-2.2); ALKALINE PHOSPHATASE 67 IU/L (42-121); ALT ALANINE AMINOTRANSFERASE 23 IU/L (10-60); AST ASPARTATE AMINOTRANSFERASE 25 IU/L (10-42); BILIRUBIN,TOTAL 0.3 mg/dL (0.2-1.0); BUN - BLOOD UREA NITROGEN 28 mg/dL (6-20); CALCIUM 9.3 mg/dL (8.5-10.3); CARBON DIOXIDE - CO2 25 mmol/L (21-32); CHLORIDE 103 mmol/L (101-111); CREATININE 2.3 mg/dL (0.4-1.0); ETOH - ETHANOL < 5.0 mg/dL; GFR - MDRD 21 (>89); GLUCOSE 109 mg/dL (70-100); LIPASE 49 U/L (22-51); MAGNESIUM 2.4 mg/dL (1.7-2.8); PHOSPHORUS 6.9 mg/dL (2.5-4.6); POTASSIUM 4.1 mmol/L (3.5-5.0); SODIUM 139 mmol/L (135-145); TOTAL PROTEIN 8.2 g/dL (6.7-8.2)
[2022-10-01] MEDS ORDERED: SODIUM CHLORIDE 0.9% 1,000 ML IV STA (19:18)
== END 2022-10-01 19:30 | disposition left against medical advice (07) ==
LOC: ED 18:11
DX: Z53.21 Procedure and treatment not carried out due to patient leaving prior to being seen by health care provider (principal)
CPT/HCPCS: 36415; 80053; 80320; 83690; 83735; 84100; 85025; 85610

== ENCOUNTER 2022-10-02 16:29 | Emergency (ER) | payer MEDICAID ==
--- NOTE | 2022-10-02 17:14 | ED Physician Documentation ---
History of Present Illness - Stated complaint Stated Complaint: LOW BP - Chief complaint Chief Complaint: General - History obtained from History obtained from: Patient - Additonal information Additional information: 66-year-old female with a past medical history of alcoholism presents with abdominal swelling. Patient states that she previously had been told that she had end-stage liver disease secondary to alcohol abuse many years ago however then she was sober for about 8 years and relapsed about a year ago. She had been drinking heavily for the last year and stopped 8 days ago. Over the course last several weeks she noticed that her abdomen had become more swollen, she states that she normally has a flat abdomen and noticed that she looked "9 months ," and was concerned that she caused harm by relapsing into alcohol abuse. She does not have abdominal pain, denies any chest pain or difficulty breathing, no nausea, vomiting, diarrhea, constipation, no urinary symptoms. She has not had any confusion or alteration in her mental status. She has been sober for the last 8 days, denies any active withdrawal symptoms. She was actually seen here yesterday and had labs obtained but stated that it was very busy here and she did not feel like she needed to be seen this left after the labs were drawn. Her primary care provider sent her over here yesterday for blood pressure in the 70s and encouraged her again today to come over and be evaluated. Review of Systems Constitutional: reports: Reviewed and negative Eyes: reports: Reviewed and negative Ears: reports: Reviewed and negative Nose: reports: Reviewed and negative Throat: reports: Reviewed and negative Cardiac: reports: Reviewed and negative Respiratory: reports: Reviewed and negative GI: reports: Abdominal Swelling. denies: Abdominal Pain, Nausea, Vomiting, Constipation, Diarrhea, Hematemesis, Bloody / black stool : reports: Reviewed and negative Skin: reports: Reviewed and negative Musculoskeletal: reports: Reviewed and negative Neurologic: reports: Reviewed and negative Psychiatric: reports: Reviewed and negative Endocrine: reports: Reviewed and negative PD PAST MEDICAL HISTORY - Past Medical History Past Medical History: Yes Cardiovascular: Hypertension, High cholesterol, Arrhythmia, Other Respiratory: Asthma, COPD, Pneumonia Endocrine/Autoimmune: None GI: Cirrhosis, Diverticulitis, Cholelithiasis, Other : Renal insuffiency, Other HEENT: None Psych: Anxiety, Post traumatic stress disorder Musculoskeletal: None Derm: None - Past Surgical History Past Surgical History: Yes General: Cholecystectomy, Colonoscopy, EGD 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, 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 Cardiovascular: Other - Present Medications Home Medications: Ambulatory Orders Medication Instructions Recorded Confirmed Estradiol [Estrace] 2 mg PO DAILY 08/20/13 01/14/21 Gabapentin [Neurontin] 300 mg PO BID 12/02/16 01/14/21 allopurinoL [Allopurinol] 100 mg PO DAILY 12/02/16 01/14/21 Albuterol Sulfate [Proventil Hfa 1 - 2 puffs IH Q4H PRN #1 02/27/17 01/14/21 Inhaler] hfa.aer.ad Oxybutynin Chloride [Ditropan Xl] 15 mg PO DAILY 01/14/21 01/14/21 buPROPion HCL [Wellbutrin Xl] 300 mg PO DAILY 01/14/21 01/14/21 Albuterol 1 puffs PO BID PRN 09/22/21 09/22/21 Metoprolol Succinate [Toprol Xl] 1 tab PO BID 09/22/21 09/22/21 clonazePAM [Clonazepam] 1 tab PO DAILY 09/22/21 09/22/21 - Allergies Allergies/Adverse Reactions: Allergies Allergy/AdvReac Type Severity Reaction Status Date / Time Sulfa (Sulfonamide Allergy Intermediate Hives Verified 10/02/22 16:54 Antibiotics) varenicline [From Chantix] Allergy Unknown Verified 10/02/22 16:54 codeine AdvReac Itching Verified 10/02/22 16:54 morphine AdvReac Anxiety Verified 10/02/22 16:54 - Social History Does the pt smoke?: Yes Smoking Status: Current every day smoker Does the pt drink ETOH?: No Does the pt have substance abuse?: No - Immunizations Immunizations are current?: Yes - POLST Patient has POLST: No PD ED PE NORMAL - Vitals Vital signs reviewed: Yes - General General: Alert and oriented X 3, No acute distress, Well developed/nourished - HEENT HEENT: Atraumatic, Moist mucous membranes, Pharynx benign, Other (anicteric) - Neck Neck: Supple, no meningeal sign, No JVD - Cardiac Cardiac: RRR, No murmur, No gallop, No rub, Strong equal pulses - Respiratory Respiratory: No respiratory distress, Clear bilaterally - Abdomen Abdomen: Normal bowel sounds, Soft, Non tender, Other (abdominal ascites) - Back Back: No CVA TTP, No spinal TTP - Derm Derm: Normal color, No rash - Extremities Extremities: No deformity, No tenderness to palpate, Normal ROM s pain, No edema, No calf tenderness / cord - Neuro Neuro: Alert and oriented X 3 Eye Opening: Spontaneous Motor: Obeys Commands Verbal: Oriented GCS Score: 15 - Psych Psych: Normal mood, Normal affect Results - Vitals Vitals: Vital Signs - 24 hr 10/02/22 10/02/22 10/02/22 16:49 17:00 17:09 Temperature 36.3 C L Heart Rate 90 Respiratory 16 16 16 Rate Blood Pressure 104/55 L O2 Saturation 96 10/02/22 10/02/22 10/02/22 17:23 18:40 18:48 Temperature Heart Rate 81 Respiratory 16 20 17 Rate Blood Pressure 151/65 H O2 Saturation 98 10/02/22 18:56 Temperature Heart Rate Respiratory 16 Rate Blood Pressure O2 Saturation Oxygen O2 Source [With Activity] Nasal cannula O2 Source [Without Activity] Nasal cannula O2 Source Room air - Labs Labs: Laboratory Tests 10/02/22 10/02/22 10/02/22 16:59 17:15 17:15 WBC 8.1 RBC 3.94 L Hgb 13.1 Hct 40.2 MCV 102.0 H MCH 33.2 H MCHC 32.6 RDW 13.9 Plt Count 201 MPV 9.9 Neut # (Auto) 4.8 Lymph # (Auto) 2.4 [place] # (Auto) 0.6 Eos # (Auto) 0.2 Baso # (Auto) 0.1 Absolute Nucleated RBC 0.00 Nucleated RBC % 0.0 PT INR Sodium 139 Potassium 4.4 Chloride 106 Carbon Dioxide 25 Anion Gap 8.0 BUN 27 H Creatinine 1.3 H Estimated GFR (MDRD) 41 L Glucose 101 H Calcium 9.0 Total Bilirubin 0.2 AST 43 H ALT 38 Alkaline Phosphatase 80 Total Protein 7.9 Albumin 4.4 Globulin 3.5 Albumin/Globulin Ratio 1.3 Lipase 50 Urine Color YELLOW Urine Clarity CLEAR Urine pH 6.0 Ur Specific [place] 1.020 Urine Protein NEGATIVE Urine Glucose (UA) NEGATIVE Urine Ketones NEGATIVE Urine Occult Blood NEGATIVE Urine Nitrite NEGATIVE Urine Bilirubin NEGATIVE Urine Urobilinogen 0.2 (NORMAL) Ur Leukocyte Esterase NEGATIVE Ur Microscopic Review NOT INDICATED Urine Culture Comments NOT INDICATED Ethyl Alcohol < 5.0 10/02/22 17:30 WBC RBC Hgb Hct MCV MCH MCHC RDW Plt Count MPV Neut # (Auto) Lymph # (Auto) [place] # (Auto) Eos # (Auto) Baso # (Auto) Absolute Nucleated RBC Nucleated RBC % PT 10.1 INR 0.9 Sodium Potassium Chloride Carbon Dioxide Anion Gap BUN Creatinine Estimated GFR (MDRD) Glucose Calcium Total Bilirubin AST ALT Alkaline Phosphatase Total Protein Albumin Globulin Albumin/Globulin Ratio Lipase Urine Color Urine Clarity Urine pH Ur Specific [place] Urine Protein Urine Glucose (UA) Urine Ketones Urine Occult Blood Urine Nitrite Urine Bilirubin Urine Urobilinogen Ur Leukocyte Esterase Ur Microscopic Review Urine Culture Comments Ethyl Alcohol PD Medical Decision Making - ED course Complexity details: reviewed old records, reviewed results, re-evaluated patient, considered differential, d/w patient ED course: This is a 66-year-old female with a past medical history of alcoholism and prior diagnosis of alcoholic cirrhosis who presents with abdominal swelling. She also had an episode of low blood pressure yesterday though was not symptomatic. She incidentally had her blood drawn yesterday here before she had left due to the long wait time and this showed some DONOVAN. She was sent back from the clinic here to the ER today for reevaluation. The patient is tearful on physical exam but Nontoxic and in no acute distress. She has a soft but protuberant abdomen with evidence of ascites but nontender and her physical exam is otherwise unremarkable. She has no signs of hepatic encephalopathy, no active bleeding, no hematemesis or hematochezia. We obtained labs which have actually improved from yesterday, her renal function is decreased from baseline but her creatinine is down to 1.3 and GFR up into the 40s. Her LFTs, bilirubin, and INR are stable. I had ordered a right upper quadrant ultrasound to evaluate her liver however the patient stated that she did not want to wait any longer and that she was feeling fine. Her vital signs here have remained stable, patient is awake alert and nontoxic with no other acute findings today therefore I do think that this ultrasound can be completed on outpatient basis. The patient was advised a routine call your doctor to arrange a follow-up appointment, make the next available appointment. In the interim, return anytime if worse or if new symptoms develop. For alcoholic cirrhosis, recommended low-salt diet, advised to abstain from alcohol and follow closely with her PCP. I discussed return precautions if new or worsening symptoms. The patient was discharged home in stable condition. Departure - Departure Disposition: 01 Home, Self Care Clinical Impression: Abdominal ascites Qualifiers: Ascites type: due to alcoholic cirrhosis Qualified Code(s): K70.31 - Alcoholic cirrhosis of liver with ascites Condition: Fair Instructions: ED Ascites, ED Cirrhosis Liver Comments: As we discussed, I suspect the swelling in your abdomen is due to ascites from alcoholic cirrhosis and damage to your liver. Your labs today look somewhat better than yesterday, your kidney function has improved. Your blood pressure today is stable. The abdominal ascites is not emergent but sometimes it is drained to help with your symptoms. This can be arranged as an outpatient. We were planning on getting an ultrasound of your abdomen today however you expressed the desire to leave and I do think this can be safely done in the outpatient setting. If you were to develop abdominal pain, Fever, confusion or change in your mental status or other new concerns, Please return to the ER. Please schedule a follow-up with your primary doctor as soon as possible. Please continue to abstain from alcohol as any use in the future will make your symptoms worse.
[2022-10-02 17:29] LABS: BASOPHILS # (AUTO) 0.1 10^3/uL (0.0-0.1); BASOPHILS % (AUTO) 0.7 %; EOSINOPHILS # (AUTO) 0.2 10^3/uL (0.0-0.7); EOSINOPHILS % (AUTO) 2.5 %; HCT - HEMATOCRIT 40.2 % (37.0-47.0); HGB - HEMOGLOBIN 13.1 g/dL (12.0-16.0); LYMPHOCYTES # (AUTO) 2.4 10^3/uL (1.5-3.5); LYMPHOCYTES % (AUTO) 29.9 %; MEAN CORPUSCULAR HEMOGLOBIN 33.2 pg (27.0-31.0); MEAN CORPUSCULAR HGB CONC 32.6 g/dL (32.0-36.0); MEAN PLATELET VOLUME 9.9 fL (7.9-10.8); MONOCYTES # (AUTO) 0.6 10^3/uL (0.0-1.0); MONOCYTES % (AUTO) 7.1 %; NEUTROPHILS # (AUTO) 4.8 10^3/uL (1.5-6.6); NEUTROPHILS % (AUTO) 59.3 %; PLT - PLATELET COUNT 201 10^3/uL (130-450); RED BLOOD COUNT 3.94 10^6/uL (4.20-5.40); RED CELL DISTRIBUTION WIDTH 13.9 % (12.0-15.0); WHITE BLOOD COUNT 8.1 x10^3/uL (4.8-10.8)
[2022-10-02 17:41] LABS: ALBUMIN 4.4 g/dL (3.2-5.5); ALBUMIN/GLOBULIN RATIO 1.3 (1.0-2.2); ALKALINE PHOSPHATASE 80 IU/L (42-121); ALT ALANINE AMINOTRANSFERASE 38 IU/L (10-60); AST ASPARTATE AMINOTRANSFERASE 43 IU/L (10-42); BILIRUBIN,TOTAL 0.2 mg/dL (0.2-1.0); BUN - BLOOD UREA NITROGEN 27 mg/dL (6-20); CARBON DIOXIDE - CO2 25 mmol/L (21-32); CHLORIDE 106 mmol/L (101-111); CREATININE 1.3 mg/dL (0.4-1.0); ETOH - ETHANOL < 5.0 mg/dL; GFR - MDRD 41 (>89); GLUCOSE 101 mg/dL (70-100); LIPASE 50 U/L (22-51); POTASSIUM 4.4 mmol/L (3.5-5.0); SODIUM 139 mmol/L (135-145); TOTAL PROTEIN 7.9 g/dL (6.7-8.2)
[2022-10-02 17:51] LABS: INR 0.9 (0.8-1.2); PT - PROTHROMBIN TIME 10.1 secs (9.9-12.6)
[2022-10-02 18:25] LABS: BILIRUBIN,URINE NEGATIVE (NEGATIVE); GLUCOSE, URINE (UA) NEGATIVE (NEGATIVE); KETONES,URINE (UA) NEGATIVE (NEGATIVE); LEUKOCYTE ESTERASE, URINE NEGATIVE (NEGATIVE); NITRITE,URINE NEGATIVE (NEGATIVE); OCCULT BLOOD,URINE NEGATIVE (NEGATIVE); PROTEIN,URINE NEGATIVE (NEGATIVE); UROBILINOGEN,URINE 0.2 (NORMAL) E.U./dL (NORMAL)
[2022-10-02 18:30] LABS: CLARITY,URINE CLEAR (CLEAR)
[2022-10-02 18:44] VITALS: BP 151/65
== END 2022-10-02 19:10 | disposition home or self-care (01) ==
LOC: ED 16:29
DX: K70.31 Alcoholic cirrhosis of liver with ascites (principal); F17.200 Nicotine dependence, unspecified, uncomplicated
CPT/HCPCS: 36415; 80053; 80320; 81001; 81003; 83690; 85025; 85610; 87086; 99283; 99284

== ENCOUNTER 2023-05-29 16:05 | Outpatient (CLI) | payer MEDICARE ==
[2023-05-29 17:33] LABS: BASOPHILS # (AUTO) 0.1 10^3/uL (0.0-0.1); BASOPHILS % (AUTO) 0.7 %; EOSINOPHILS # (AUTO) 0.3 10^3/uL (0.0-0.7); EOSINOPHILS % (AUTO) 2.9 %; HCT - HEMATOCRIT 39.7 % (37.0-47.0); HGB - HEMOGLOBIN 13.2 g/dL (12.0-16.0); LYMPHOCYTES # (AUTO) 2.9 10^3/uL (1.5-3.5); LYMPHOCYTES % (AUTO) 30.9 %; MEAN CORPUSCULAR HEMOGLOBIN 31.1 pg (27.0-31.0); MEAN CORPUSCULAR HGB CONC 33.2 g/dL (32.0-36.0); MEAN CORPUSCULAR VOLUME 93.6 fL (81.0-99.0); MEAN PLATELET VOLUME 10.5 fL (7.9-10.8); MONOCYTES # (AUTO) 0.7 10^3/uL (0.0-1.0); MONOCYTES % (AUTO) 7.5 %; NEUTROPHILS # (AUTO) 5.4 10^3/uL (1.5-6.6); NEUTROPHILS % (AUTO) 57.7 %; PLT - PLATELET COUNT 227 10^3/uL (130-450); RED BLOOD COUNT 4.24 10^6/uL (4.20-5.40); WHITE BLOOD COUNT 9.4 x10^3/uL (4.8-10.8)
[2023-05-29 17:48] LABS: ALBUMIN 4.6 g/dL (3.2-5.5); ALBUMIN/GLOBULIN RATIO 1.6 (1.0-2.2); ALKALINE PHOSPHATASE 83 IU/L (42-121); ALT ALANINE AMINOTRANSFERASE 13 IU/L (10-60); AMYLASE 40 U/L (28-100); AST ASPARTATE AMINOTRANSFERASE 15 IU/L (10-42); BILIRUBIN,TOTAL 0.4 mg/dL (0.2-1.0); BUN - BLOOD UREA NITROGEN 13 mg/dL (6-20); CALCIUM 9.8 mg/dL (8.5-10.3); CARBON DIOXIDE - CO2 30 mmol/L (21-32); CHLORIDE 104 mmol/L (101-111); CHOL/HDL RATIO 5.7 (<4.4); CHOLESTEROL 261 mg/dL; CREATININE 0.9 mg/dL (0.6-1.3); GFR - MDRD 63 (>89); GLUCOSE 92 mg/dL (74-104); HDL CHOLESTEROL 46 mg/dL; LDL CHOLESTEROL,CALCULATED 157 mg/dL; LDL/HDL RATIO 3.4 (<4.4); LIPASE 36 U/L (11-82); POTASSIUM 4.1 mmol/L (3.5-4.5); SODIUM 140 mmol/L (135-145); TOTAL PROTEIN 7.5 g/dL (6.4-8.9); TRIGLYCERIDES 290 mg/dL (48-352); VLDL CHOLESTEROL 58 mg/dL
[2023-05-29 18:17] LABS: THYROID STIMULATING HORMONE 1.03 uIU/mL (0.34-5.60)
== END 2023-05-29 16:06 | disposition home or self-care (01) ==
LOC: LAB.N 16:05
PROVIDERS: ATTEND Nurse Practitioner
DX: R10.32 Left lower quadrant pain (principal); R06.02 Shortness of breath; E78.1 Pure hyperglyceridemia; R00.2 Palpitations; R25.2 Cramp and spasm
CPT/HCPCS: 36415; 80053; 80061; 82150; 82550; 83690; 83721; 83880; 84443; 85025

== ENCOUNTER 2023-08-21 15:29 | Outpatient (CLI) | payer MEDICARE | END 2023-08-21 15:30 | disposition home or self-care (01) | LOC: RT 15:29 | PROVIDERS: ATTEND Nurse Practitioner | DX: R06.02 Shortness of breath (principal) | CPT/HCPCS: 94060; 94729 ==

== ENCOUNTER 2023-09-11 14:49 | Outpatient (CLI) | payer MEDICARE, MEDICAID | END 2023-09-11 23:59 | disposition critical access hospital (66) | LOC: EMS 14:49 | DX: S49.92XA Unspecified injury of left shoulder and upper arm, initial encounter (principal); W01.190A Fall on same level from slipping, tripping and stumbling with subsequent striking against furniture, initial encounter; Y92.008 Other place in unspecified non-institutional (private) residence as the place of occurrence of the external cause | CPT/HCPCS: A0425; A0427 ==

== ENCOUNTER 2023-09-11 15:14 | Emergency (ER) | payer MEDICARE, MEDICAID ==
--- NOTE | 2023-09-11 15:29 | ED Physician Documentation ---
PD HPI UPPER EXT INJURY - Stated complaint Stated Complaint: FALL, R ARM PAIN - History obtained from History obtained from: Patient - History of Present Illness Location: Left, Shoulder, Elbow Type of injury: Fall (she states she lost balance and fell. Did not feel badly prior to that. Landed onto left shoulder or elbow, not sure as it happened quick;ly. Pain to left shoulder and elbow. 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) Timing - details: Abrupt onset, Still present Improved by: No: Rest Worsened by: Moving, Palpating Associated symptoms: No: Weakness, Numbness Contributing factors: No: Anticoagulated Similar symptoms before: Has not had sx before PD PAST MEDICAL HISTORY - Past Medical History Cardiovascular: Hypertension, High cholesterol, Arrhythmia, Other Respiratory: Asthma, COPD, Pneumonia Endocrine/Autoimmune: None GI: Cirrhosis, Diverticulitis, Cholelithiasis, Other : Renal insuffiency, Other HEENT: None Psych: Anxiety, Post traumatic stress disorder Musculoskeletal: None Derm: None - Past Surgical History Past Surgical History: Yes General: Cholecystectomy, Colonoscopy, EGD 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, 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 Cardiovascular: Other - Present Medications Home Medications: Ambulatory Orders Medication Instructions Recorded Confirmed Estradiol [Estrace] 2 mg PO DAILY 08/20/13 09/11/23 Gabapentin [Neurontin] 300 mg PO BID 12/02/16 09/11/23 allopurinoL [Allopurinol] 100 mg PO DAILY 12/02/16 09/11/23 Albuterol Sulfate [Proventil Hfa 1 - 2 puffs IH Q4H PRN #1 02/27/17 09/11/23 Inhaler] hfa.aer.ad buPROPion HCL [Wellbutrin Xl] 300 mg PO DAILY 01/14/21 09/11/23 oxyBUTYnin chloride [Ditropan Xl] 15 mg PO DAILY 01/14/21 09/11/23 Albuterol 1 puffs PO BID PRN 09/22/21 09/11/23 Metoprolol Succinate [Toprol Xl] 1 tab PO BID 09/22/21 09/11/23 clonazePAM [Clonazepam] 1 tab PO DAILY 09/22/21 09/11/23 Acetaminophen [Acetaminophen Extra 500 mg PO QID PRN #40 tablet 09/11/23 Strength] Meloxicam [Mobic] 7.5 mg PO BID 10 Days #20 tablet 09/11/23 Ondansetron Odt [Zofran] 4 mg TL Q6H PRN #20 tablet 09/11/23 methocarbamoL [Robaxin] 500 mg PO TID PRN #20 tablet 09/11/23 oxyCODONE [Roxicodone] 5 mg PO Q6H PRN #20 tablet 09/11/23 - Allergies Allergies/Adverse Reactions: Allergies Allergy/AdvReac Type Severity Reaction Status Date / Time Sulfa (Sulfonamide Allergy Intermediate Hives Verified 09/11/23 15:31 Antibiotics) varenicline [From Chantix] Allergy Unknown Verified 09/11/23 15:31 codeine AdvReac Itching Verified 09/11/23 15:31 morphine AdvReac Anxiety Verified 09/11/23 15:31 - Social History Does the pt smoke?: Yes Smoking Status: Current every day smoker Does the pt drink ETOH?: No Does the pt have substance abuse?: No - Immunizations Immunizations are current?: Yes - POLST Patient has POLST: No PD ED PE NORMAL - Vitals Vital signs reviewed: Yes - General General: Alert and oriented X 3, No acute distress, Well developed/nourished - HEENT HEENT: Atraumatic - Neck Neck: Supple, no meningeal sign, No bony TTP - Respiratory Respiratory: Clear bilaterally, Other (no chestwall tenderness. ) - Abdomen Abdomen: Soft, Non tender - Back Back: No spinal TTP - Derm Derm: Normal color, Warm and dry - Extremities Extremities: Other (Elbow some tender without effusion nor guarded ROM in except of causing shoulde movement. ) - Neuro Neuro: No motor deficit, No sensory deficit Results - Vitals Vitals: Vital Signs - 24 hr 09/11/23 15:21 Temperature 36.5 C Heart Rate 93 Respiratory 20 Rate Blood Pressure 99/82 H O2 Saturation 96 Oxygen O2 Source [With Activity] Nasal cannula O2 Source [Without Activity] Nasal cannula O2 Source Room air - Rads (name of study) left elbow Relevant Findings:: Prelim report reviewed, EMP independent interpretation of test (no fractures) left shoulder Relevant Findings:: Prelim report reviewed, EMP independent interpretation of test (proximal humerus fracture, impacted nondisplaced nor angulated. ) PD Medical Decision Making - ED course Complexity details: considered differential (fell and struck elbow with elbow and shoulder pain. Xray showing proximal humerus neck impacted fracture. ), d/w patient, d/w informatics consultant (Dr. Bonds - who was in ED a bit later, who states the sling and immobilze it, followup in office, is appropriate. ) Departure - Departure Disposition: 01 Home, Self Care Clinical Impression: Fall from slip, trip, or stumble, Proximal humerus fracture Condition: Stable Record reviewed to determine appropriate education?: Yes Instructions: ED Fx Shoulder Follow-Up: Orthopedic Care [Provider Group] Prescriptions: Acetaminophen [Acetaminophen Extra Strength] 500 mg PO QID PRN #40 tablet PRN Reason: Pain Meloxicam [Mobic] 7.5 mg PO BID 10 Days #20 tablet methocarbamoL [Robaxin] 500 mg PO TID PRN #20 tablet PRN Reason: Spasms oxyCODONE [Roxicodone] 5 mg PO Q6H PRN #20 tablet PRN Reason: Pain Ondansetron Odt [Zofran] 4 mg TL Q6H PRN #20 tablet PRN Reason: Nausea / Vomiting Comments: Use the shoulder brace and immobilizer to helps reduce range of motion at the broken area and therefore less pain. You will likely develop bruising in that area and with gravity and will show up several days from now down the arm and around the elbow so not to be surprised if that occurs. Cool towels or ice to the area periodically to help reduce swelling. Call the orthopedic office tomorrow for follow-up appointment for about 7 from now. Tell them that you are seen in the ER with the shoulder fracture. Commonly will treat this with a combination of anti-inflammatories plus muscle relaxant for the shoulder girdle muscles and also regular Tylenol. To that add oxycodone pain medicine if needed for worse pain. You will need to find the most comfortable positions for you. With this type of fracture, a lot of people find sleeping in a recliner or propped up with several pillows so there is less rolling onto the shoulder to be the most comfortable. Typically people need this mainly in the first several days or so with the inflammation in the initial pain of the bone nurse. I wrote her prescription for you for the above medications and sent them to your preferred pharmacy. I am prescribing a short course of narcotic pain medication for you. These are potentially dangerous and addictive medications that should be used carefully. These medications may constipate you. Take an fvta-gwt-wmxzyal stool softener such as docusate twice daily with plenty of water while taking these medications. If you go 24 hours without a bowel movement, take niyn-kvq-offcmck MiraLAX, per package instructions. Do not drink or drive while taking these medications. If you received narcotic or sedating medications while in the emergency department do not drive for 24 hours. Store this medication in a safe, secure place and out of reach of children. It is a violation of federal law to give or sell this medication to another person or to use in a manner other than prescribed. The ED will not refill narcotic prescriptions, including prescriptions lost or stolen. You can dispose of unwanted medications at the [facility] office or at several pharmacies such as [facility]. Forms: PCP List Discharge Date/Time: 09/11/23 17:37
[2023-09-11 15:34] VITALS: BP 99/82; O2SAT 96
[2023-09-11] MEDS: HYDROmorphone 1 MG/ML CARPUJECT IVP STA (15:39)
[2023-09-11] MEDS: KETOROLAC 15 MG/ML VIAL IVP STA (15:39)
--- NOTE | 2023-09-11 16:16 | XRAY Report ---
PROCEDURE: Shoulder 2+V LT INDICATIONS: fall with shoulder and elbow pain TECHNIQUE: 3 views of the shoulder were acquired. COMPARISON: None. FINDINGS: Bones: Mildly displaced fracture of the humeral head/neck.. No suspicious bony lesions. Visualized ribs appear intact. Soft tissues: No suspicious soft tissue calcifications. The visualized lungs are within normal limi ts. IMPRESSION: Mildly displaced fracture of the humeral head/neck. Reviewed by: Karl Kaplan MD on 09/11/2023 4:15 PM PDT Approved by: Karl Kaplan MD on 09/11/2023 4:15 PM PDT Station ID: [id number]
--- NOTE | 2023-09-11 16:17 | XRAY Report ---
PROCEDURE: Elbow 1-2V LT INDICATIONS: fall with shoulder and elbow pain TECHNIQUE: 2 views of the elbow were acquired. COMPARISON: None. FINDINGS: Bones: No fractures or dislocations. No suspicious bony lesions. Soft tissues: No effusion. No suspicious soft tissue calcifications or masses. IMPRESSION: No acute bony abnormality. If pain persists with conservative management, consider repeat x-ray in 10 -14 days or cross-sectional imaging. Reviewed by: Karl Kaplan MD on 09/11/2023 4:15 PM PDT Approved by: Karl Kaplan MD on 09/11/2023 4:15 PM PDT Station ID: [id number]
[2023-09-11] MEDS: diazePAM INJ 5 MG/ML SYRINGE IVP STA (16:33)
== END 2023-09-11 17:37 | disposition home or self-care (01) ==
LOC: EDUNIT# → ED 15:14
DX: S42.202A Unspecified fracture of upper end of left humerus, initial encounter for closed fracture (principal); W18.30XA Fall on same level, unspecified, initial encounter; I10 Essential (primary) hypertension; E78.00 Pure hypercholesterolemia, unspecified; J44.9 Chronic obstructive pulmonary disease, unspecified; F17.200 Nicotine dependence, unspecified, uncomplicated; Z79.899 Other long term (current) drug therapy
CPT/HCPCS: 96374; 96375; 99285

== ENCOUNTER 2023-09-21 10:16 | Outpatient (CLI) | payer MEDICARE, MEDICAID ==
--- NOTE | 2023-09-22 17:47 | XRAY Report ---
PROCEDURE: Shoulder 2+V LT INDICATIONS: SHOULDER PAIN TECHNIQUE: 3 views of the shoulder were acquired. COMPARISON: Left shoulder radiograph on September 11, 2023. FINDINGS: Bones: Similar appearance of comminuted, mildly displaced, extra-articular fracture of the humeral h ead/neck with mild impaction. Stable alignment. No suspicious bony lesions. Visualized ribs appear intact. Soft tissues: No suspicious soft tissue calcifications. The visualized lungs are within normal limi ts. IMPRESSION: Similar appearance of mildly displaced, comminuted and mildly impacted fracture of the humeral head/n sherita. Stable alignment. Reviewed by: Myranda Simeon MD on 09/22/2023 5:46 PM PDT Approved by: Myranda Simeon MD on 09/22/2023 5:46 PM PDT Station ID: [id number]
== END 2023-09-21 10:17 | disposition home or self-care (01) ==
LOC: DI 10:16
PROVIDERS: ATTEND Orthopaedic Surgery
DX: S42.212D Unspecified displaced fracture of surgical neck of left humerus, subsequent encounter for fracture with routine healing (principal)

== ENCOUNTER 2023-09-21 10:27 | Outpatient (CLI) | payer MEDICARE, MEDICAID ==
--- NOTE | 2023-09-22 18:05 | XRAY Report ---
PROCEDURE: Lumbar Spine 2-3V INDICATIONS: LOWER BACK PAIN TECHNIQUE: 2 views of the lumbar spine were acquired. COMPARISON: None FINDINGS: Bones: 5 ulh-qig-iivminb vertebrae are present. Levoconvex curvature of the lumbar spine centered at L3-L4. Moderate to severe multilevel degenerative changes with osteophytosis, disc height loss and f acet arthropathy, notably at L2-L3. Mild osseous neural foraminal narrowing at L4-L5 and L5-S1. No ve rtebral body compression fractures. No suspicious bony lesions. Soft tissues: Overlying bowel gas pattern is normal. No suspicious soft tissue calcifications. Cho lecystectomy clips. IMPRESSION: 1.No acute fracture or traumatic subluxation. If clinical symptoms persist, consider cross-sectional imaging for further evaluation. 2.Moderate to severe multilevel degenerative changes, worse at L2-L3. Reviewed by: Myranda Simeon MD on 09/22/2023 6:04 PM PDT Approved by: Myranda Simeon MD on 09/22/2023 6:04 PM PDT Station ID: [id number]
--- NOTE | 2023-09-22 18:07 | XRAY Report ---
PROCEDURE: Hips w/Pelvis 2-3V BL INDICATIONS: HIP JOINT PAIN TECHNIQUE: 3 view(s) of the hip were acquired. COMPARISON: Right hip radiograph on January 03, 2014 FINDINGS: Bones: No fractures or dislocations. No suspicious bony lesions. Qbsp-ec-mafeafwi bilateral femoroa cetabular joint space narrowing and juxta-articular osteophytosis. The visualized pelvic ring appears intact. Please see same-day lumbar spine for detailed description of additional findings. Soft tissues: No suspicious soft tissue calcifications or masses. IMPRESSION: 1.No acute bony abnormality. If there remains a high clinical concern for fracture, consider cross-se ctional imaging now. If pain persists, consider repeat x-ray in 10-14 days or cross-sectional imaging . 2.Mild to moderate bilateral hip osteoarthritis, symmetric. Reviewed by: Myranda Simeon MD on 09/22/2023 6:06 PM PDT Approved by: Myranda Simeon MD on 09/22/2023 6:06 PM PDT Station ID: [id number]
== END 2023-09-21 10:28 | disposition home or self-care (01) ==
LOC: DI 10:27
PROVIDERS: ATTEND Nurse Practitioner
DX: R29.898 Other symptoms and signs involving the musculoskeletal system (principal); M16.0 Bilateral primary osteoarthritis of hip; M47.816 Spondylosis without myelopathy or radiculopathy, lumbar region; S42.212D Unspecified displaced fracture of surgical neck of left humerus, subsequent encounter for fracture with routine healing

== ENCOUNTER 2023-10-21 12:34 | Outpatient (CLI) | payer MEDICARE, MEDICAID ==
--- NOTE | 2023-10-21 16:05 | XRAY Report ---
PROCEDURE: Shoulder 2+V LT INDICATIONS: 2-PART NONDISPLACED FRACTURE OF SURGICAL NECK OF L TECHNIQUE: 4 views of the shoulder were acquired. COMPARISON: 09/21/2023. FINDINGS: Bones: Similar appearance and alignment of mildly displaced, comminuted and impacted humeral head/ne ck fracture. Calcifications present, consistent with healing. No suspicious bony lesions. Visualize d ribs appear intact. Soft tissues: No suspicious soft tissue calcifications. The visualized lungs are within normal limi ts. IMPRESSION: Healing humeral head/neck fracture. Reviewed by: Karl Kaplan MD on 10/21/2023 4:03 PM PDT Approved by: Karl Kaplan MD on 10/21/2023 4:03 PM PDT Station ID: [id number]
== END 2023-10-21 12:35 | disposition home or self-care (01) ==
LOC: DI 12:34
PROVIDERS: ATTEND Orthopaedic Surgery
DX: S42.225D 2-part nondisplaced fracture of surgical neck of left humerus, subsequent encounter for fracture with routine healing (principal)

== ENCOUNTER 2023-12-23 14:38 | Outpatient (CLI) | payer MEDICARE, MEDICAID ==
--- NOTE | 2023-12-24 23:08 | CT Report ---
PROCEDURE: Lung Cancer Screen INDICATIONS: SMOKER TECHNIQUE: A CT scan of the chest was performed. Intravenous contrast media was not administered. Images were re corded and evaluated at appropriate window settings. Reformats: axial MIP of the chest, coronal and s agittal. For radiation dose reduction, the following was used: automated exposure control, adjustment of mA and/or kV according to patient size. COMPARISON: 09/06/2021 FINDINGS: Image quality: Excellent. Prior cancer history: Unknown Lungs and pleura: No pleural effusions. No pneumothorax. Multiple patchy groundglass opacities clust ered in the superior and posterior basal segments of the right lower lung . 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 Largest in the right middle lobe is about 3 mm, series 12 image 177. Left lower lobe nodules a re also about 3 mm. Mild bilateral central bronchial wall thickening. No bronchiectasis. Mediastinum: Heart size is normal. No pericardial effusion. No large vessel abnormality. No mediastin al adenopathy by size criteria. No anterior or posterior mediastinal mass. Normal esophagus without hiatal hernia Chest wall and lower neck: Thyroid is unremarkable. No axillary or supraclavicular adenopathy by size . Bones: No aggressive osseous abnormality. Upper Abdomen: Unremarkable. IMPRESSION: Lung RAD: 2 - Benign. Recommendation: Continue annual screening in 12 Months with LDCT Acute patchy right lower lobe lung nodules are likely infectious, possibly inflammatory/aspiration. C orrelate with acute pulmonary symptoms. Findings of bronchitis. Reviewed by: Susu Lynch MD on 12/24/2023 11:07 PM PDT Approved by: Susu Lynch MD on 12/24/2023 11:07 PM PDT Station ID: [id number]
== END 2023-12-23 14:39 | disposition home or self-care (01) ==
LOC: DI 14:38
PROVIDERS: ATTEND Student in an Organized Health Care Education/Training Program
DX: Z12.2 Encounter for screening for malignant neoplasm of respiratory organs (principal); F17.210 Nicotine dependence, cigarettes, uncomplicated; R91.8 Other nonspecific abnormal finding of lung field; J40 Bronchitis, not specified as acute or chronic

== ENCOUNTER 2023-12-23 14:40 | Outpatient (CLI) | payer MEDICARE, MEDICAID ==
--- NOTE | 2023-12-23 21:39 | DEXA Report ---
PROCEDURE: Dexa Spine and/or Hip INDICATIONS: POST MENOPAUSAL TECHNIQUE: Dual energy x-ray absorptiometry (DXA) was performed on a [employer] System. Regions measur ed are the AP Spine, femoral neck, and if needed forearm. COMPARISON: None. FINDINGS: Lumbar Spine: Bone Mineral Density: 1.090 g/cm/cm,T score: -0.7. Left Femoral Neck: Bone Mineral Density: 0.641 g/cm/cm, T score: -2.9. Left Hip: Bone Mineral Density: 0.723 g/cm/cm,T score: -2.3. FRAX score not reported due to T score less than -2.5. (T score greater or equal to -1.0: NORMAL) (T score from -1.1 to -2.4: OSTEOPENIA) (T score less than or equal to -2.5 to: OSTEOPOROSIS) Impression: By WHO criteria, this patient has osteoporosis. Patients with diagnosis of osteoporosis or osteopenia should have regular bone mineral density assess ment. For those eligible for Medicare, routine testing is allowed once every 2 years. Testing frequ ency can be increased for patients who have rapidly progressing disease or for those who are receivin g medical therapy to restore bone mass. Reviewed by: Arun Reilly MD on 12/23/2023 9:38 PM PDT Approved by: Arun Reilly MD on 12/23/2023 9:38 PM PDT Station ID: [id number]
== END 2023-12-23 14:41 | disposition home or self-care (01) ==
LOC: DI 14:40
PROVIDERS: ATTEND Student in an Organized Health Care Education/Training Program
DX: Z13.820 Encounter for screening for osteoporosis (principal); M81.0 Age-related osteoporosis without current pathological fracture

== ENCOUNTER 2023-12-23 14:42 | Outpatient (CLI) | payer MEDICARE, MEDICAID ==
--- NOTE | 2023-12-24 10:03 | XRAY Report ---
PROCEDURE: Shoulder 2+V LT INDICATIONS: 2-PART NONDISP FX OF SURGICAL NECK OF LEFT HUMERUS TECHNIQUE: 4 views of the shoulder were acquired. COMPARISON:left shoulder X-ray 12/23/2023 FINDINGS: Bones: Osteopenia, impacted femoral neck fracture. Fracture extending into the humeral head again id entified. Alignment appears similar to prior study. Minimal interval callus formation noted. Soft tissues: No definite radiographic abnormality. IMPRESSION: Impacted humeral head and neck fracture. Reviewed by: Damian Cheatham MD on 12/24/2023 10:01 AM PDT Approved by: Damian Cheatham MD on 12/24/2023 10:01 AM PDT Station ID: [id number]
== END 2023-12-23 14:43 | disposition home or self-care (01) ==
LOC: DI 14:42
PROVIDERS: ATTEND Orthopaedic Surgery
DX: S42.225A 2-part nondisplaced fracture of surgical neck of left humerus, initial encounter for closed fracture (principal); Z12.2 Encounter for screening for malignant neoplasm of respiratory organs; F17.210 Nicotine dependence, cigarettes, uncomplicated; R91.8 Other nonspecific abnormal finding of lung field; J40 Bronchitis, not specified as acute or chronic; M81.0 Age-related osteoporosis without current pathological fracture; Z13.820 Encounter for screening for osteoporosis